=== PATIENT | male | born 1955 | race Caucasian/White ===

== ENCOUNTER 2018-12-15 12:57 | Outpatient (CLI) | payer OTHER, SELFPAY ==
--- NOTE | 2018-12-15 15:00 | DI.RAD_ITS ---
EXAM: XR FINGER RT INDEX INDICATION: Unexplained bruising under fingernail S69.90XA INJURY FINGER. COMPARISON: No exams were available for comparison TECHNIQUE: 2D digital imaging was performed. FINDINGS: No fracture or dislocation is seen. Degenerative changes are seen at the interphalangeal joints. IMPRESSION: No acute abnormality.
== END 2018-12-15 13:17 ==
PROVIDERS: PCP Family Medicine; Visit Provider Family Medicine
DX: S69.91XA Unspecified injury of right wrist, hand and finger(s), initial encounter (principal); M79.644 Pain in right finger(s); M19.041 Primary osteoarthritis, right hand
CPT/HCPCS: 73140

== ENCOUNTER 2020-05-25 09:10 | Outpatient (CLI) | payer OTHER, SELFPAY ==
--- NOTE | 2020-05-25 15:45 | DI.RAD_ITS ---
EXAM: XR RIBS RT W PA LAT CHEST CLINICAL HISTORY: Right flank pain, ? rib or lung involvement, R10.9 TECHNIQUE: 2D digital imaging was performed. COMPARISON: CR,RF BARIUM SWALLOW ONLY from 05/01/2017 FINDINGS: No obvious right rib fractures evident. No lung contusion or pneumothorax. There is no pleural effusion evident. Heart size is normal and there is no significant mediastinal widening. IMPRESSION: 1. No right rib fractures evident. 2. No ipsilateral lung nor pleural abnormality evident. No pneumothorax. DATA REPOSITORY: RADIATION DOSE DELIVERED:
== END 2020-05-25 09:30 ==
PROVIDERS: PCP Family Medicine; Visit Provider Nurse Practitioner
DX: R10.31 Right lower quadrant pain (principal)
CPT/HCPCS: 71046; 71100

== ENCOUNTER 2020-05-25 19:02 | Outpatient (REF) | payer OTHER, SELFPAY | END 2020-05-25 19:03 | disposition home or self-care (01) | LOC: LBN 19:02 | PROVIDERS: PCP Family Medicine; Visit Provider Nurse Practitioner | DX: R10.31 Right lower quadrant pain (principal) | CPT/HCPCS: 87086 ==

== ENCOUNTER 2020-09-17 14:32 | Outpatient (REF) | payer OTHER, SELFPAY ==
[2020-09-19 00:04] LABS: COVID-19 RT-PCR UVMMC Result Negative (Negative)
== END 2020-09-17 14:33 | disposition home or self-care (01) ==
LOC: LBN 14:32
PROVIDERS: PCP Family Medicine; Visit Provider Nurse Practitioner Family
DX: Z20.822 Contact with and (suspected) exposure to COVID-19 (principal); J02.9 Acute pharyngitis, unspecified
CPT/HCPCS: U0003

== ENCOUNTER 2021-01-02 02:10 | Outpatient (CLI) | payer OTHER, SELFPAY ==
[2021-01-02 11:34] LABS: ALT 25 U/L (16-63); AST 15 U/L (15-37); Albumin 3.8 g/dL (3.4-5.0); Alkaline Phosphatase 84 U/L (46-116); Anion Gap 6.6 mmol/L (3-11); BUN 17 mg/dL (7-18); Bilirubin, Total 0.5 mg/dL (0.2-1.0); CO2 31.4 mmol/L (21.0-32.0); Calcium 8.9 mg/dL (8.5-10.1); Calculated LDL 166 mg/dL (<100); Chloride 105 mmol/L (98-107); Cholesterol 235 mg/dL (<200); Glucose 97 mg/dL (74-106); HDL Cholesterol 55 mg/dL (40-60); Sodium 143 mmol/L (136-145); Total Protein 6.8 g/dL (6.4-8.2); Triglyceride 74 mg/dL (<150)
[2021-01-03 10:19] LABS: HIV-1/2 Ag & Ab Screen Negative (Negative)
== END 2021-01-02 02:11 | disposition home or self-care (01) ==
LOC: LOS 02:10
PROVIDERS: PCP Family Medicine; Visit Provider Family Medicine
DX: E78.5 Hyperlipidemia, unspecified (principal); Z11.4 Encounter for screening for human immunodeficiency virus [HIV]
CPT/HCPCS: 36415; 80053; 80061; 87389

== ENCOUNTER 2021-09-22 01:33 | Outpatient (CLI) | payer BC, SELFPAY ==
[2021-09-22 08:01] LABS: Abs Immature Grans 0.02 10^3/uL (0.0-0.06); Absolute Basophil Count 0.05 10^3/uL (0.0-0.2); Absolute Lymphocyte Count 1.02 10^3/uL (1.2-3.4); Absolute Monocyte Count 0.82 10^3/uL (0.1-0.8); Basophils % 0.7; HCT 42.9 % (40.0-50.0); HGB 13.7 g/dL (13.5-17.5); Immature Grans % 0.3; MCH 29.3 pg (27.0-33.0); MCHC 31.9 % (32.0-36.0); MCV 92 fL (80-95); MPV 9.5 fL (8.0-11.0); Platelet Count 230 10^3/uL (130-400); RBC 4.67 10^6/uL (4.36-5.78); RDW 13.2 % (11.8-14.1); RDW-SD 45.1 fL; WBC 6.81 10^3/uL (4.4-10.8)
[2021-09-22 08:11] LABS: ALT 23 U/L (16-63); AST 16 U/L (15-37); Albumin 3.8 g/dL (3.4-5.0); Alkaline Phosphatase 74 U/L (46-116); Anion Gap 6.9 mmol/L (3-11); BUN 18 mg/dL (7-18); Bilirubin, Total 0.6 mg/dL (0.2-1.0); CO2 28.1 mmol/L (21.0-32.0); Calcium 8.8 mg/dL (8.5-10.1); Chloride 104 mmol/L (98-107); Glucose 130 mg/dL (74-106); Sodium 139 mmol/L (136-145)
== END 2021-09-22 01:34 | disposition home or self-care (01) ==
LOC: LBO 01:34
PROVIDERS: PCP Nurse Practitioner Adult Health; Visit Provider Surgery
DX: E78.5 Hyperlipidemia, unspecified (principal); K21.00 Gastro-esophageal reflux disease with esophagitis, without bleeding; K43.9 Ventral hernia without obstruction or gangrene; N40.0 Benign prostatic hyperplasia without lower urinary tract symptoms; R39.9 Unspecified symptoms and signs involving the genitourinary system
CPT/HCPCS: 36415; 80053; 85025

== ENCOUNTER 2021-10-31 06:07 | Day surgery (SDC) | payer BC, SELFPAY ==
--- NOTE | 2021-10-30 10:58 | W.PM.OP ---
Date of service: 10/31/21 Time of Service: 09:21 Operative Note Operative Note DATE OF PROCEDURE: 10/31/21 PRE-OP DIAGNOSIS: abdominal wall hernia x2- incisional in LUQ and umbilical POST-OP DIAGNOSIS: same (laprascopic ventral hernia repair) PROCEDURE: laprascopic ventral hernia repair SURGEON: Tammie Corado SOFTWARE ENGINEER DEVELOPER: Tammie Robins ANESTHESIA TYPE: Local By Surgeon, General LMA/ETT and Primary Nerve Block Refer to Anesthesia Record ESTIMATED BLOOD LOSS: 5 PATHOLOGY: none sent COMPLICATIONS: None Patient was transported to: same day Patient's condition: stable Procedure Description: Patient is here today for ventral hernia repair. He has an umbilical hernia and a port site hernia in the left upper quadrant from a previous esophageal hernia repair. He has been noting increased pain in the left upper quadrant port site hernia. Both hernias are marked in preop and reviewed procedures, risks, and expectations at home for care. He needs to be off 2 weeks from work and then he will follow-up with me in the office we will decide when he can return to work. Patient is brought to the operative room suite. He is placed in the supine position. Anesthesia is administered per the department of anesthesia. Alfonso catheter is placed. Arms are tucked. He did receive preop antibiotics. He is prepped and draped in the usual sterile fashion using a ChloraPrep scrub solution. Timeout is performed. 30 cc of quarter percent Marcaine is used create local field blocks. A stab incision is done through the umbilical hernia. The varies needle is inserted. Drop test is positive and insufflation is begun. With 15 mmHg is noted on the monitor, the Veress is removed and a 5mm port is inserted in the right lower quadrant. The scope was then inserted through the port which show There is no damage to underlying structures. The umbilical hernia and hernia in the right upper quadrant are noted. The umbilical hernia is 2x1 cm. The hernia in LUQ is 1x1cm. There are no adhesions or large hernia sacks. He is also been having some pain in the right upper quadrant. This is an area of scar tissue from where a port site have been placed previously but there is no hernia. A second 5mm blunt port is then placed in the laterally left lower quadrant under direct visualization following creation of local field block, as well as a subcostal 10 mm port on the right. The falciform ligament and fatty attachments are then taken down, to facilitate mesh placement, using a LigaSure device; placed in a bag and brought out. The fascial edges are not closed prior to the mesh fixation. Proper sizing of the mesh is ensured. The mesh is not placed against the abdominal wall. A [employer] 2D imaging system mesh 6.5 inch hernia mesh is used-please see RN notes for lot number. The mesh is rolled and introduced into the abdominal cavity through the 10mm port. It is positioned between the two hernias. The insulflation tubing is brought through the abdominal wall using a endoclose device. The positioning balloon is inflated and the mesh is secured to the anterior abdominal wall and placed in proper orientation. The mesh is held into position w/ a hemostat. It is fixed into place using AbsorbaTacks, placed every 1 cm around the edges and than internally. There is at least 5cm overlap of the mesh over the hernia defects. Satisfied with the repair of the area, a diagnostic laparoscopy was performed. There was no abnormal fluid collection or any active bleeding noted. The pressure in the abdomen is decreased. The mesh is noted to lay flat with no buckling. Endo Close device is used to close the fascia over the 10 mm port site. The 5 mm ports are removed under direct visualization. There is no bleeding. All ports and instruments are removed. Pneumoperitoneum is evacuated. Sponge and needle and instrument counts are correct. The port sites are closed with 4-0 Monocryl running subcuticular fashion and skin affix. The patient tolerated the procedure well without complication and transferred to the recovery room in stable condition.
[2021-10-31] VITALS (13 sets, daily range): BP systolic 89–115; BP diastolic 43–73; PULSE 52–57; RESP 15–19; TEMP 36.2–36.6; O2SAT 93–98; BMI 30.2
[2021-10-31] MEDS: Gabapentin 300 MG CAP 600 MG PO (06:46)
[2021-10-31] MEDS: Acetaminophen 500 MG TAB 1000 MG PO (06:46)
--- NOTE | 2021-10-31 06:53 | W.ANESPRE ---
General Info Date of Service Date Performed: 10/31/21 Height: 5 ft 10 in Weight: 95.7 kg Body Mass Index (BMI): 30.2 Surgical Procedure: Operation Date: 10/31/21 07:40 Proposed Procedure Side Surgeon p Hernia Abdominal Wall Laparoscopic X2 Tammie Corado, Meds Allergies and Home Medications Allergies Allergy/AdvReac Type Severity Reaction Status Date / Time atorvastatin Allergy Intermediate RASH Verified 10/31/21 06:28 bupropion AdvReac Intermediate PASSED Verified 10/31/21 06:28 OUT tamsulosin AdvReac throat Verified 10/31/21 06:28 burning, chest pressure, stomach discomfort Home Medication Medication Instructions Recorded ibuprofen 200 mg capsule (Advil 400 mg PO Q4H PRN 11/15/14 Liqui-Gel) clotrimazole 1 % topical cream 1 applic transdermal BID 30 days 11/17/19 #45 grams hydrocortisone acetate 1 % topical 1 applic topical Q8H PRN 30 days 11/17/19 ointment #1 tube alfuzosin 10 mg tablet,extended 10 mg PO DAILY 02/27/21 release 24 hr Current Visit Medications: Current Medications Generic Name Dose Route Start Last Admin Trade Name Freq PRN Reason Stop Dose Admin Acetaminophen 1,000 mg 10/31/21 06:00 10/31/21 06:46 Acetaminophen 500 Mg Tab PO 10/31/21 16:00 1,000 mg PREOP GAIL Administration Gabapentin 600 mg 10/31/21 06:00 10/31/21 06:46 Gabapentin 300 Mg Cap PO 10/31/21 16:00 600 mg PREOP GAIL Administration Ondansetron HCl 4 mg/ Sodium 52 mls @ 200 mls/hr 10/30/21 10:57 Chloride IVPB Q6H PRN PRN Ringer's Solution 1,000 mls @ 80 mls/hr 10/31/21 06:00 IV 11/29/21 23:59 INFUSION GAIL Cefazolin Sodium/Dextrose 2 gm in 50 mls @ 100 mls/hr 10/31/21 06:00 Ancef Duplex IVPB 10/31/21 16:00 PREOP GAIL IV Miscellaneous Supplies 1 each 10/31/21 06:00 Iv Access IV 11/29/21 23:59 DIRECTED GAIL Morphine Sulfate 2 mg 10/30/21 10:57 Morphine 4 Mg/Ml Syr IVP Q1H PRN PRN Sodium Chloride 0 ml 10/31/21 06:00 Normal Saline Flush 10 Ml Syr IV 11/29/21 23:59 PRN PRN Sodium Chloride 0 ml 10/31/21 06:00 Normal Saline 10 Ml Vial IJ 11/29/21 23:59 DIRECTED PRN Sterile Water 0 ml 10/31/21 06:00 Water,Injection,Sterile 10 Ml Vial IJ 11/29/21 23:59 DIRECTED PRN PFSH Active Problems Active Problems: Problem Status Onset Code Paraesophageal hernia 06/14/17 K44.9 Reflux esophagitis 03/04/17 K21.0 Right flank pain R10.9 Left upper quadrant abdominal pain R10.12 Abdominal wall hernia K43.9 Medical History Medical History Abnormal auditory perception (12/28/13) Benign prostate hyperplasia Decreased libido (~02/27/20) Feeling of incomplete bladder emptying (02/27/20) History of rheumatic fever (02/16/11) Pt. states when he was 4 or 5 years. Pt. states he has had no issues with his heart, he said years and years ago he was told he had a heart murmur but nothing has ever been said in years per pt. 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) Increased urinary frequency (11/25/15) Lower urinary tract symptoms (LUTS) (05/01/16) Meralgia paresthetica of right side (05/01/16) Osteoarthritis of left hip 01/22/18 [facility] Overweight (BMI 25.0-29.9) (11/15/14) usual 205-215 Right leg paresthesias (11/09/13) R lateral thigh; onset Sensorineural hearing loss, bilateral (01/10/15) Tinnitus of both ears (11/09/13) URI (upper respiratory infection) Vitreous detachment of right eye (11/15/14) decr lateral field R eye, Dr Gary Glover [place] Medical History Comments:: [place] [facility] [place] reports needing straight cath postop; he's worried about that Surgical History Surgical History Paraesophageal Hernia repair (07/29/17) [place] [facility] [place]aroscopically w/Intraoperative Upper Endo UGI w/ Bx (02/28/17) UGI w/ bx to break ring (no histology) (04/11/17) Vasectomy vasectomy , reversal 01/1993 Tobacco Smoking/Tobacco Use Status: Former Tobacco Use Smokeless tobacco user: snuff Passive smoking exposure: No Second hand exposure: No Alcohol Alcohol Intake: current Alcohol intake frequency: 0-2 drinks per day Alcohol type: beer Substance Use Substance use: Never Substance use type: does not use Vital Signs and Lab Results Vital Signs Most Recent Vital Signs in EMR: Most Recent Vital Signs Temp Pulse Resp BP Pulse Ox 36.6 C 57 L 15 115/73 98 10/31/21 06:32 10/31/21 06:32 10/31/21 06:32 10/31/21 06:32 10/31/21 06:32 Lab Results Blood Type / Crossmatch: No Data to Display Complete Blood Count: No Data to Display Complete Metabolic Panel: No Data to Display Liver Function Panel: No Data to Display Coagulation Panel: No Data to Display Cardiac Panel: No Data to Display Arterial Blood Gas: No Data to Display Venous Blood Gas: No Data to Display Pancreas Panel: No Data to Display Thyroid Panel: No Data to Display Infectious Disease: No Data to Display Blood Cultures: No Data to Display Toxicology Panel: No Data to Display Anesthesia Assessment and Plan Anesthesia History Personal History: No History of Anesthesia Complications Family History: No Family History of Anesthesia Complications Exercise Tolerance Exercise Tolerance: Metabolic Equivalents>4 Pertinent Negatives Pertinent Negatives: No Symptoms of GERD, No Major Cardiovascular Symptoms or Complaints and No Major Pulmonary Symptoms or Complaints Cardiac & Pulmonary Exam Cardiac Exam: Normal S1/S2 Heart Sounds Pulmonary Exam: Clear Bilateral Breath Sounds Implantable Cardiac Device Does patient have a Pacemaker or an ICD?: No Airway Exam Known Difficult Airway: No Mallampati Class: 1 Mouth Opening: Normal (> 3cm) Thyromental Distance: Greater than 3 cm Neck Range of Motion: Full ROM Neck Circumference: Normal Teeth Condition: Normal Dentition ASA Classification ASA Score: ASA 2 Emergency Case?: No NPO Status NPO Status: NPO Clears >2 hours, Solids >8 hours Anesthesia Plan Resuscitation Status: Full Code Anesthesia Technique: General Anesthesia Airway Planned: Endotracheal Tube Monitors Used: Standard Monitors
[2021-10-31] MEDS: Lactated Ringers 1,000 ML 80 ML IV (07:20)
--- NOTE | 2021-10-31 07:31 | W.PM.HP.N ---
Date of service: 10/31/21 Time of Service: 07:31 Assessment and Plan Assessment and plan (1) Paraesophageal hernia: Status: Acute (2) Left upper quadrant abdominal pain: Status: Acute (3) Abdominal wall hernia: Status: Acute (4) Benign prostate hyperplasia: (5) History of rheumatic fever: (6) Hyperlipidemia: History of Present Illness Narrative: PT is here today for incionsla hernia repair x2 He has been having increasing pain in the left upper quadrant incision. He also notes a questionable bulge in the right upper quadrant. He has had no nausea and vomiting. Reviewed what he could expect during the procedure postprocedure recovery time and risks. We discussed that he may need to spend the night in the hospital because muscle spasm from tach placement. Risks include but are not limited to: Bleeding, infection, pneumonia, blood clots, chronic pain or numbness, reaction from the mesh, recurrences complications from anesthesia, and other on physical complications. Patient understands this has not been done for cosmesis. All questions answered and he is stable for procedure. The hernia sites are marked. This document was created using voice activated software and may contain errors Review of Systems All systems reviewed & are unremarkable except as noted in HPI and below PFSH All Active Problems Paraesophageal hernia (Acute 06/14/17) Raman Srinivasan MD [facility] [place] Reflux esophagitis (Acute 03/04/17) 03/01/[address] [facility] [place] endoscopy RH Right flank pain (Acute) Left upper quadrant abdominal pain (Acute) Abdominal wall hernia (Acute) Medical History Abnormal auditory perception (12/28/13) Benign prostate hyperplasia Decreased libido (~02/27/20) Feeling of incomplete bladder emptying (02/27/20) History of rheumatic fever (02/16/11) Pt. states when he was [age] years. Pt. states he has had no issues with his heart, he said years and years ago he was told he had a heart murmur but nothing has ever been said in years per pt. 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) Increased urinary frequency (11/25/15) Lower urinary tract symptoms (LUTS) (05/01/16) Meralgia paresthetica of right side (05/01/16) Osteoarthritis of left hip 01/22/18 [facility] Overweight (BMI 25.0-29.9) (11/15/14) usual 205-215 Right leg paresthesias (11/09/13) R lateral thigh; onset Sensorineural hearing loss, bilateral (01/10/15) Tinnitus of both ears (11/09/13) URI (upper respiratory infection) Vitreous detachment of right eye (11/15/14) decr lateral field R eye, Dr Gary Glover, [place] Surgical History Paraesophageal Hernia repair (07/29/17) Done at [facility] [place] Laparoscopically w/Intraoperative Upper Endo UGI w/ Bx (02/28/17) UGI w/ bx to break ring (no histology) (04/11/17) Vasectomy vasectomy , reversal 01/1993 Family History Mother , Breast Cancer at age 86. Neoplasm Father , cardiac issues at age 70. Heart disease Brother Age: 74 No problems noted. Social History Smoking/Tobacco Use Status: Former Tobacco Use Quit Date: 02/11/99 Tobacco: How many years used: 25 Smokeless tobacco user: snuff Quit status: quit date established (2004) Second Hand Exposure: No Smoking risk assessment performed?: Yes Alcohol Intake: current Alcohol Intake frequency: 0-2 drinks per day Alcohol type: beer Drug use: Never Substance use type: does not use Adopted: No Caregiver/Support person: No Foster care: No Household members: spouse Housing: house Number of Children: 3 number of grandchildren: 1 Communication Needs: Hard of Hearing and Corrective Lenses Education Level: high school Do you need help understanding health information?: Rarely 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 Pets and animals: Yes Pets and animals: cat(s) and dog(s) Sexually active: No Do you think of yourself as: straight/heterosexual Current gender identity: male What is your relationship status?: How often do you talk on the phone with friends or family?: once per week How often do you attend mosque or mormonism services?: decline to answer Do you belong to any clubs or organized social groups?: yes Panel score (0-1 are the most socially isolated patients): 2 What type of physical activity do you participate in: walking Duration: 15-30 minutes/day Frequency: 3-4 times per week Geraldine/Christian: None Special geraldine needs: No Seatbelt use: always Helmet use: Yes Helmet use: sometimes Drive intox or ride w/intox 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 Do you feel safe in your relationship?: Yes Meds Allergies and Home Medications Allergies Allergy/AdvReac Type Severity Reaction Status Date / Time atorvastatin Allergy Intermediate RASH Verified 10/31/21 06:28 bupropion AdvReac Intermediate PASSED Verified 10/31/21 06:28 OUT tamsulosin AdvReac throat Verified 10/31/21 06:28 burning, chest pressure, stomach discomfort Home Medications Medication Instructions Recorded Confirmed Type ibuprofen 200 mg capsule (Advil 400 mg PO Q4H PRN 11/15/14 10/31/21 History Liqui-Gel) clotrimazole 1 % topical cream 1 applic transdermal BID 30 days 11/17/19 10/31/21 Rx #45 grams hydrocortisone acetate 1 % topical 1 applic topical Q8H PRN 30 days 11/17/19 10/31/21 Rx ointment #1 tube alfuzosin 10 mg tablet,extended 10 mg PO DAILY 02/27/21 10/31/21 History release 24 hr Exam Resp Effort & Inspection: normal respiratory effort and able to speak in complete sentences Auscultation: clear to auscultation bilaterally Cardio Rate: regular rate Rhythm: regular rhythm GI Inspection: visible herniation (sites marked. pt now having pain in ruq as well. will visulaize ) Palpation: soft Auscultation: normal bowel sounds Extrem General: no clubbing, cyanosis or edema Results Last Vital Signs Temp 36.6 C 10/31/21 06:32 Pulse 57 L 10/31/21 06:32 Resp 15 10/31/21 06:32 BP 115/73 10/31/21 06:32 Pulse Ox 98 10/31/21 06:32
[2021-10-31] MEDS: ceFAZolin 2 GM/50 ML BAG IVPB (07:42)
[2021-10-31] MEDS: Bupivacaine 0.5% Pres-Free W/EPI 30 ML VIAL (08:44)
--- NOTE | 2021-10-31 09:22 | W.PM.DSUDISC ---
Discharge Plan Disposition Patient Disposition: HOME Condition: Good Discharge Details Reason For Visit: ventral hernia repair Attending Provider: Tammie Corado Primary Care Provider: Kinjal Krishna Home Meds and New Rx's Prescriptions: New tramadol [Ultram] 50 mg tablet 50 mg PO Q6H PRNQty: 14 0RF cyclobenzaprine 5 mg tablet 5 mg PO TID PRNQty: 20 0RF Continued ibuprofen [Advil Liqui-Gel] 200 MG capsule 400 mg PO Q4H PRN Rx Instructions: uses PRN L shoulder pain clotrimazole 1 % cream 1 applic Transdermal BID 30 Days Qty: 45 2RF Rx Instructions: Apply to leg, groin and flank hydrocortisone acetate 1 % ointment 1 applic Topical Q8H PRN 30 Days Qty: 1 3RF Rx Instructions: Apply to leg, groin, flank and back, as needed, for itch alfuzosin 10 mg tablet extended release 24 hr 10 mg PO DAILY Rx Instructions: administer after the same meal each day, note dated 02/26/2021 [facility] Discharge Instructions Additional Instructions: Dr. Corado HERNIA REPAIR ? POSTOPERATIVE INSTRUCTIONS Patients who have this type of surgery can usually be expected to return to work within two weeks and have minimal amounts of discomfort. ? ACTIVITY: The day of surgery should be spent resting. However, you can be up for short periods of time, I.E., going to the bathroom or kitchen. Avoid lifting or straining. On the day following surgery, you can be up and about as desired. ? LIFTING: Restrict your lifting to no more than five (5) pounds for the first week following surgery. For the second week after surgery, don?t lift more than ten pounds.? We will decide when you are done with restrictions and when you can return to work, at your follow-up appointment.? No sexual activity for two weeks.? ? DIET: There are no dietary restrictions following surgery. However, you may want to start with small amounts of liquids to avoid nausea the day of surgery. ? INCISION CARE: You will notice purple skin glue closing the incision.? Do not peel this off- it will wear off on its own.? After 24 hours you may shower. The dressing may be replaced for comfort, but is not necessary. ?An ice bag may be applied to the incision for 72 hours following surgery. ? SIGNS OF INFECTION: It is not unusual to have some black and blue discoloration of the skin around the incision. ?It will slowly disappear. If you have any increased redness, drainage, fever (above 100 degrees), please contact your doctor for an examination. ? DISCOMFORT: You may expect to have some mild discomfort at the incision sight. If severe pain develops you should contact your doctor for further instructions. ? URINATION: Patients who have surgery occasionally have problems urinating. If you experience problems and are not able to urinate within 6 hours following your surgery, please call your doctor immediately or go to your nearest Emergency Room for evaluation. ? DRIVING: NO driving for three (3) days after surgery, or if you are still taking narcotic pain medication.? ? MEDICATIONS: Alternate Tylenol 1000mg by mouth every 8 hours and Ibuprofen 600mg every 6 hours. ?Make sure you take ibuprofen with food and not on an empty stomach. ?Take the Tylenol and ibuprofen continuously for the first 72hrs- not just when you have pain.? Use the tramadol (narcotic pain medication) OR flexeril (muscle relaxer) for breakthrough pain. Do not take the tramadol and flexeril at the same time. Take at least 1 hour aprt.? Use ICE!?? Twenty minutes on, and then off, continuously for the first 72hours. If you are taking narcotic pain medication, follow the instructions on the label and do not drive. Pain medications can make you very constipated. Make sure you are moving your bowels daily. If not, take Miralax, milk of magnesia or magnesium citrate.?? Anesthesia makes you very constipated.? Take a dose of milk of magnesia the morning after surgery. ? REPORT: Unusual swelling, severe pain, unresolved nausea, signs of infection, or difficulty in urination to your surgeon. Follow up in clinic with Dr. Corado in 2 weeks.? [phone] Activity:: see above Remove Dressings/Wound Care:: 24 hours Shower/Bathe:: 24 hours Diet:: As Tolerated Discharge Orders Discharge Orders: Discharge Order (Routine); Ordered 10/30/21 Ordered By: Tammie Corado DS: Diagnosis Discharge Diagnosis (1) Paraesophageal hernia: Status: Acute (2) Left upper quadrant abdominal pain: Status: Acute (3) Abdominal wall hernia: Status: Acute (4) Benign prostate hyperplasia: (5) History of rheumatic fever: (6) Hyperlipidemia:
[2021-10-31] MEDS: ePHEDrine 25 MG/5 ML Syringe IVP ×2 (10:24→10:39)
[2021-10-31] MEDS: HYDROmorphone 2 MG/ML SYR IVP (10:30)
[2021-10-31] MEDS: Normal Saline 10 ML VIAL IJ (10:30)
--- NOTE | 2021-10-31 11:24 | W.ANESPOSTOP ---
Postoperative Evaluation Date, Time and Location Date Performed: 10/31/21 Time Performed: 11:24 Patient Location: Day Surgery Unit Vital Signs Most Recent Imported Vital Signs: Most Recent Vital Signs Temp Pulse Resp BP Pulse Ox 36.3 C L 57 L 16 107/59 L 94 10/31/21 10:50 10/31/21 10:50 10/31/21 10:50 10/31/21 10:50 10/31/21 10:50 Pain Score Most Recent Pain Score: Most Recent Pain Score Pain Level 5 10/31/21 10:50 Assessment Mental Status: Awake (Alert & Oriented to Patient Baseline) Airway and Respiratory Function: Patent airway with normal (patient baseline) respiratory exam Cardiovascular Function: Hemodynamically Stable Hydration Status: Adequately Hydrated Nausea & Vomiting: No Nausea or Vomiting Pain: Pain is tolerable per patient (06/20, will receive PO Tramadol. Pt. agrees with plan.) Peripheral Nerve Block: Patient did not receive a nerve block
[2021-10-31] MEDS: traMADol 50 MG TAB PO (11:38)
[2021-10-31] MEDS: Cyclobenzaprine 10 MG TAB PO (13:14)
== END 2021-10-31 15:09 | disposition home or self-care (01) ==
PROVIDERS: PCP Nurse Practitioner Adult Health; Visit Provider Surgery
PROC: 0WQF4ZZ Repair Abdominal Wall, Percutaneous Endoscopic Approach (ICD-10-PCS; CPT 49654; principal; 2021-10-31 07:30)
DX: K43.2 Incisional hernia without obstruction or gangrene (principal); K42.9 Umbilical hernia without obstruction or gangrene
CPT/HCPCS: 49654; 49652; C1781; J0690; J1100; J1170; J1885; J2405; J2704

== ENCOUNTER 2021-11-01 07:42 | Emergency (ER) | payer BC, SELFPAY ==
[2021-11-01 07:46] VITALS: BP 142/80; PULSE 82; RESP 16; TEMP 36.8; O2SAT 96
[2021-11-01 08:04] LABS: Bilirubin Negative (Negative); Blood Large (Negative); Clarity Clear (Clear); Glucose Negative (Negative); Ketones Negative (Negative); Leukocyte Esterase Negative (Negative); Nitrite Negative (Negative); Urobilinogen 0.2 EU/dL (Up TO 0.2)
--- NOTE | 2021-11-01 08:05 | W.ED.GENAD ---
Discharge Plan Disposition Patient Disposition: HOME Condition: Stable Discharge Details Clinical Impression: Acute urinary retention Primary Care Provider: Kinjal Krishna ED Provider: José Madden Home Meds and New Rx's Prescriptions: Continued ibuprofen [Advil Liqui-Gel] 200 MG capsule 400 mg PO Q4H PRN Rx Instructions: uses PRN L shoulder pain clotrimazole 1 % cream 1 applic Transdermal BID 30 Days Qty: 45 2RF Rx Instructions: Apply to leg, groin and flank hydrocortisone acetate 1 % ointment 1 applic Topical Q8H PRN 30 Days Qty: 1 3RF Rx Instructions: Apply to leg, groin, flank and back, as needed, for itch tramadol [Ultram] 50 mg tablet 50 mg PO Q6H PRNQty: 14 0RF cyclobenzaprine 5 mg tablet 5 mg PO TID PRNQty: 20 0RF Discontinued alfuzosin 10 mg tablet extended release 24 hr 10 mg PO DAILY Rx Instructions: administer after the same meal each day, note dated 02/26/2021 cgc Discharge Instructions Instructions: Urinary Retention in Men (ED), Alfonso Catheter Placement and Care (ED) Additional Instructions: Please keep Alfonso catheter intact. Follow-up with general surgery later this week for reassessment. Return to the emergency department immediately for any worsening or new concerning symptoms. Referrals: Kinjal Krishna, EZEKIEL [Primary Care Provider] - aTmmie Corado DO [OSTEOPATHIC DOCTOR] - Medical Decision Making 65-year-old male with history of BPH here with urinary discomfort and suprapubic pain 1 day status post umbilical hernia surgery that was performed under general anesthesia with urinary catheter. Patient was able to produce only a small amount of urine and bladder scan was performed showing greater than 600 mL of urine retained. Urinalysis was reviewed and reveals 20-50 RBCs, 0-2 WBCs. Presentation is consistent with acute urinary retention likely secondary to instrumentation and anesthesia. Plan to place Alfonso catheter. Patient has been on alpha 1-osmar in the past and discontinued use secondary to abnormal rash. I will not restart alpha 1 osmar at this time given side effect. I called and spoke with on-call surgeon, Dr. Lees, discussed ED presentation course, he agrees with treatment and will schedule outpatient follow-up for reassessment on Saturday. HPI General Mode of arrival: ambulatory. Date/Time Provider Initiated Documentation: 11/01/21 07:57. Limitations to Documentation: no limitations. Information obtained by: patient and family. HPI Narrative: 55-year-old male with history of BPH here 1 day status post umbilical hernia surgery with chief complaint of urinary discomfort. Patient notes feeling like he has to urinate and is having trouble initiating stream. He had a small amount of hematuria last night. Also notes dysuria. Symptoms are severe. Constant. No modifiers. Patient denies associated fever. No testicular pain or swelling. Of note, patient was catheterized for umbilical hernia surgery that was performed with general anesthesia. Related Data Home Medications Medication Instructions Recorded Confirmed ibuprofen 200 mg capsule (Advil 400 mg PO Q4H PRN 11/15/14 11/01/21 Liqui-Gel) clotrimazole 1 % topical cream 1 applic transdermal BID 30 days 11/17/19 11/01/21 #45 grams hydrocortisone acetate 1 % topical 1 applic topical Q8H PRN 30 days 11/17/19 11/01/21 ointment #1 tube cyclobenzaprine 5 mg tablet 5 mg PO TID PRN #20 tabs 10/31/21 11/01/21 tramadol 50 mg tablet (Ultram) 50 mg PO Q6H PRN #14 tabs 10/31/21 11/01/21 Previous Rx's Medication Instructions Recorded clotrimazole 1 % topical cream 1 applic transdermal BID 30 days 11/17/19 #45 grams hydrocortisone acetate 1 % topical 1 applic topical Q8H PRN 30 days 11/17/19 ointment #1 tube cyclobenzaprine 5 mg tablet 5 mg PO TID PRN #20 tabs 10/31/21 tramadol 50 mg tablet (Ultram) 50 mg PO Q6H PRN #14 tabs 10/31/21 Allergies Allergy/AdvReac Type Severity Reaction Status Date / Time atorvastatin Allergy Intermediate RASH Verified 11/01/21 07:51 bupropion AdvReac Intermediate PASSED Verified 11/01/21 07:51 OUT tamsulosin AdvReac throat Verified 11/01/21 07:51 burning, chest pressure, stomach discomfort General Stated Complaint: Urinary OBEY: 3 Review of Systems All systems reviewed & are unremarkable except as noted in HPI and below Constitutional Constitutional: Denies fever(s) Gastrointestinal Gastrointestinal: Reports abdominal pain (Suprapubic fullness) PFSH All Active Problems (Updated 11/01/21 @ 08:30 by José Madden MD) Acute urinary retention (Acute) Paraesophageal hernia (Acute 06/14/17) Raman Srinivasan MD [facility] Reflux esophagitis (Acute 03/04/17) 03/01/17 Dr. Payne [facility] endoscopy RH Right flank pain (Acute) Left upper quadrant abdominal pain (Acute) Abdominal wall hernia (Acute) Medical History Abnormal auditory perception (12/28/13) Benign prostate hyperplasia Decreased libido (~02/27/20) Feeling of incomplete bladder emptying (02/27/20) History of rheumatic fever (02/16/11) Pt. states when he was 4 or 5 years. Pt. states he has had no issues with his heart, he said years and years ago he was told he had a heart murmur but nothing has ever been said in years per pt. 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) Increased urinary frequency (11/25/15) Lower urinary tract symptoms (LUTS) (05/01/16) Meralgia paresthetica of right side (05/01/16) Osteoarthritis of left hip 01/22/18 [facility] Overweight (BMI 25.0-29.9) (11/15/14) usual 205-215 Right leg paresthesias (11/09/13) R lateral thigh; onset Sensorineural hearing loss, bilateral (01/10/15) Tinnitus of both ears (11/09/13) URI (upper respiratory infection) Vitreous detachment of right eye (11/15/14) decr lateral field R eye, Dr Gary Glover [place] Surgical History Paraesophageal Hernia repair (07/29/17) Done at [facility] Laparoscopically w/Intraoperative Upper Endo UGI w/ Bx (02/28/17) UGI w/ bx to break ring (no histology) (04/11/17) Vasectomy vasectomy , reversal 01/1993 Family History Mother , Breast Cancer at age 86. Neoplasm Father , cardiac issues at age 70. Heart disease Brother Age: 74 No problems noted. Social History Smoking/Tobacco Use Status: Former Tobacco Use Quit Date: 02/11/99 Tobacco: How many years used: 25 Smokeless tobacco user: snuff Quit status: quit date established (2004) Second Hand Exposure: No Smoking risk assessment performed?: Yes Alcohol Intake: current Alcohol Intake frequency: 0-2 drinks per day Alcohol type: beer Drug use: Never Substance use type: does not use Adopted: No Caregiver/Support person: No Foster care: No Household members: spouse Housing: house Number of Children: 3 number of grandchildren: 1 Communication Needs: Hard of Hearing and Corrective Lenses Education Level: high school Do you need help understanding health information?: Rarely 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 Pets and animals: Yes Pets and animals: cat(s) and dog(s) Sexually active: No Do you think of yourself as: straight/heterosexual Current gender identity: male What is your relationship status?: How often do you talk on the phone with friends or family?: once per week How often do you attend jehovah's witness or cheondoism services?: decline to answer Do you belong to any clubs or organized social groups?: yes Panel score (0-1 are the most socially isolated patients): 2 What type of physical activity do you participate in: walking Duration: 15-30 minutes/day Frequency: 3-4 times per week Geraldine/Muslim: None Special geraldine needs: No Seatbelt use: always Helmet use: Yes Helmet use: sometimes 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 Do you feel safe at home: Yes Do you feel safe in your relationship?: Yes Exam Const General: cooperative and no acute distress HENMT Mouth: moist mucous membranes Eyes Conjunctivae: normal conjunctivae Sclera: normal sclerae Resp Auscultation: clear to auscultation bilaterally, no rales, no rhonchi and no wheezes GI Palpation: soft, not firm, no guarding, no masses, not rigid and tender suprapubicly Male General Exam: Yes normal external exam Penis: normal penis Meatus: meatus normal Scrotum: scrotum normal Testes: normal Skin General skin exam: no rashes or lesions noted Neuro General: patient alert, patient awake and tone normal Extrem General: no edema Psych Appearance: grossly normal Mental Status: mental status grossly normal Course Vital Signs Vital signs: Vital Signs Temperature 36.8 C 11/01/21 07:46 Pulse 82 11/01/21 07:46 Respiratory Rate 16 11/01/21 07:46 Blood Pressure 142/80 H 11/01/21 07:46 Pulse Oximetry 96 11/01/21 07:46 Temperature 36.8 C 11/01/21 07:46 Pulse 82 11/01/21 07:46 Respiratory Rate 16 11/01/21 07:46 Respiratory Effort 11/01/21 07:53 Blood Pressure 142/80 H 11/01/21 07:46 Pulse Oximetry 96 11/01/21 07:46 Pain Level 10 11/01/21 07:53
[2021-11-01 08:10] LABS: Bacteria Negative HPF (Negative); Casts 0-2 Hyaline LPF (Negative); Crystals Negative HPF (Negative); Epithelial Cells Rare HPF (Negative); Mucus Negative (Negative); RBC 20-50 HPF (0-2); WBC 0-2 HPF (0-5)
[2021-11-01 08:11] LABS: C & S Indicated? No
== END 2021-11-01 09:22 | disposition home or self-care (01) ==
PROVIDERS: Emergency Provider Student in an Organized Health Care Education/Training Program; PCP Nurse Practitioner Adult Health
DX: R33.9 Retention of urine, unspecified (principal); Z98.890 Other specified postprocedural states
CPT/HCPCS: 51702; 99283; 81003; 81015

== ENCOUNTER 2021-11-06 22:23 | Emergency (ER) | payer BC, SELFPAY ==
[2021-11-06 22:28] VITALS: BP 142/84; PULSE 72; RESP 18; O2SAT 97
[2021-11-06] MEDS: Lidocaine 2% Jelly 6 ML SYR (22:35)
--- NOTE | 2021-11-06 23:00 | W.ED.GENAD ---
Discharge Plan Disposition Patient Disposition: HOME Condition: Good Discharge Details Chief Complaint: Urinary Clinical Impression: Urinary retention Primary Care Provider: Kinjal Krishna ED Provider: Anthony Martinez Home Meds and New Rx's Prescriptions: No Action acetaminophen [Tylenol Extra Strength] 500 mg tablet 1,000 mg PO Q6H PRN terazosin 1 mg capsule 1 mg PO QHS Qty: 30 2RF silodosin [Rapaflo] 4 mg capsule 4 mg PO DAILY Qty: 30 12RF Rx Instructions: must administer with a meal/food ibuprofen [Advil Liqui-Gel] 200 MG capsule 400 mg PO Q4H PRN Rx Instructions: uses PRN L shoulder pain clotrimazole 1 % cream 1 applic Transdermal BID 30 Days Qty: 45 2RF Rx Instructions: Apply to leg, groin and flank hydrocortisone acetate 1 % ointment 1 applic Topical Q8H PRN 30 Days Qty: 1 3RF Rx Instructions: Apply to leg, groin, flank and back, as needed, for itch tramadol [Ultram] 50 mg tablet 50 mg PO Q6H PRNQty: 14 0RF cyclobenzaprine 5 mg tablet 5 mg PO TID PRNQty: 20 0RF Discharge Instructions Instructions: Urinary Retention in Men (ED), Alfonso Catheter Placement and Care (ED) Additional Instructions: Please keep the Alfonso catheter in as directed. Please follow-up closely with Dr. Corado. If you notice any worsening of your symptoms, or any new symptoms such as vomiting, diarrhea, fever, chills, shortness of breath, chest pain, numbness, weakness, or fainting , please return immediately to the emergency department for reevaluation. Please follow up with your primary care provider as soon as possible for reassessment and reevaluation. As always, it was a pleasure participating in your medical care today. Referrals: Kinjal Krishna, PHYSICIANS ASSISTANT [Primary Care Provider] - Medical Decision Making 65-year-old male presents today for urinary retention. Call was made by Dr. Corado prior to his arrival. He has multiple alpha blockers that would prescribe him, unfortunately this pharmacies were closed and the patient was unable to get those medications. Postoperatively he had a Alfonso catheter, which was just removed today, he was able to urinate earlier today but now cannot throughout this entire evening. He was sent into the ER for Alfonso catheter replacement. Patient has no other complaints at this time. No other modifying factors. Aside for some mild amount of pressure in the suprapubic region he denies any other pain. Abdominal exam was stable. Mild urinary retention was noted. Alfonso catheter was placed with no complication. Patient tolerated procedure well. Patient will be discharged home with close follow-up with Dr. Corado. I have extensively reviewed the treatment plan and discharge instructions with the patient and their family. I have addressed all patient concerns at this time. The patient and family was made aware of what symptoms to monitor for that would warrant a return to the emergency department. Discussed the plan with the patient and family, they demonstrate verbal understanding and agreement with our assessment and plan at this time. The documentation in this chart was dictated using Swyzzle dictation software. Please excuse any dictation errors. HPI General Date/Time Provider Initiated Documentation: 11/06/21 23:00. HPI Narrative: 65-year-old male presents today for urinary retention. Call was made by Dr. Corado prior to his arrival. He has multiple alpha blockers that would prescribe him, unfortunately this pharmacies were closed and the patient was unable to get those medications. Postoperatively he had a Alfonso catheter, which was just removed today, he was able to urinate earlier today but now cannot throughout this entire evening. He was sent into the ER for Alfonso catheter replacement. Patient has no other complaints at this time. No other modifying factors. Aside for some mild amount of pressure in the suprapubic region he denies any other pain. Related Data Home Medications Medication Instructions Recorded Confirmed ibuprofen 200 mg capsule (Advil 400 mg PO Q4H PRN 11/15/14 11/01/21 Liqui-Gel) clotrimazole 1 % topical cream 1 applic transdermal BID 30 days 11/17/19 11/01/21 #45 grams hydrocortisone acetate 1 % topical 1 applic topical Q8H PRN 30 days 11/17/19 11/01/21 ointment #1 tube cyclobenzaprine 5 mg tablet 5 mg PO TID PRN #20 tabs 10/31/21 11/01/21 tramadol 50 mg tablet (Ultram) 50 mg PO Q6H PRN #14 tabs 10/31/21 11/01/21 acetaminophen 500 mg tablet 1,000 mg PO Q6H PRN 11/06/21 (Tylenol Extra Strength) silodosin 4 mg capsule (Rapaflo) 4 mg PO DAILY #30 caps 11/06/21 11/06/21 terazosin 1 mg capsule 1 mg PO QHS #30 caps 11/06/21 11/06/21 Previous Rx's Medication Instructions Recorded clotrimazole 1 % topical cream 1 applic transdermal BID 30 days 11/17/19 #45 grams hydrocortisone acetate 1 % topical 1 applic topical Q8H PRN 30 days 11/17/19 ointment #1 tube cyclobenzaprine 5 mg tablet 5 mg PO TID PRN #20 tabs 10/31/21 tramadol 50 mg tablet (Ultram) 50 mg PO Q6H PRN #14 tabs 10/31/21 silodosin 4 mg capsule (Rapaflo) 4 mg PO DAILY #30 caps 11/06/21 terazosin 1 mg capsule 1 mg PO QHS #30 caps 11/06/21 Allergies Allergy/AdvReac Type Severity Reaction Status Date / Time atorvastatin Allergy Intermediate chest pain Verified 11/06/21 09:44 alfuzosin AdvReac Intermediate Skin Rash Unverified 11/06/21 08:34 bupropion AdvReac Intermediate PASSED Verified 11/06/21 08:34 OUT tamsulosin AdvReac throat Verified 11/06/21 08:34 burning, chest pressure, stomach discomfort General Stated Complaint: Urinary OBEY: 3 Review of Systems All systems reviewed & are unremarkable except as noted in HPI and below PFSH All Active Problems Acute urinary retention (Acute) Urinary retention (Acute) Paraesophageal hernia (Acute 06/14/17) Raman Srinivasan MD [facility] [place] Reflux esophagitis (Acute 03/04/17) 03/01/17 Dr. Payne [facility] [place] endoscopy RH Right flank pain (Acute) Left upper quadrant abdominal pain (Acute) Abdominal wall hernia (Acute) Medical History Abnormal auditory perception (12/28/13) Benign prostate hyperplasia Decreased libido (~02/27/20) Feeling of incomplete bladder emptying (02/27/20) History of rheumatic fever (02/16/11) Pt. states when he was 4 or 5 years. Pt. states he has had no issues with his heart, he said years and years ago he was told he had a heart murmur but nothing has ever been said in years per pt. 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) Increased urinary frequency (11/25/15) Lower urinary tract symptoms (LUTS) (05/01/16) Meralgia paresthetica of right side (05/01/16) Osteoarthritis of left hip 01/22/18 [facility] Overweight (BMI 25.0-29.9) (11/15/14) usual 205-215 Right leg paresthesias (11/09/13) R lateral thigh; onset Sensorineural hearing loss, bilateral (01/10/15) Tinnitus of both ears (11/09/13) URI (upper respiratory infection) Vitreous detachment of right eye (11/15/14) decr lateral field R eye, Dr Gary Glover, [place] Surgical History Paraesophageal Hernia repair (07/29/17) Done at [facility] [place] Laparoscopically w/Intraoperative Upper Endo UGI w/ Bx (02/28/17) UGI w/ bx to break ring (no histology) (04/11/17) Vasectomy vasectomy , reversal 01/1993 Family History Mother , Breast Cancer at age 86. Neoplasm Father , cardiac issues at age 70. Heart disease Brother Age: 74 No problems noted. Social History Smoking/Tobacco Use Status: Former Tobacco Use Quit Date: 02/11/99 Tobacco: How many years used: 25 Smokeless tobacco user: snuff Quit status: quit date established (2004) Second Hand Exposure: No Smoking risk assessment performed?: Yes Alcohol Intake: current Alcohol Intake frequency: 0-2 drinks per day Alcohol type: beer Drug use: Never Substance use type: does not use Adopted: No Caregiver/Support person: No Foster care: No Household members: spouse Housing: house Number of Children: 3 number of grandchildren: 1 Communication Needs: Hard of Hearing and Corrective Lenses Education Level: high school Do you need help understanding health information?: Rarely 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 Pets and animals: Yes Pets and animals: cat(s) and dog(s) Sexually active: No Do you think of yourself as: straight/heterosexual Current gender identity: male What is your relationship status?: How often do you talk on the phone with friends or family?: once per week How often do you attend judaism or yazidism services?: decline to answer Do you belong to any clubs or organized social groups?: yes Panel score (0-1 are the most socially isolated patients): 2 What type of physical activity do you participate in: walking Duration: 15-30 minutes/day Frequency: 3-4 times per week Geraldine/Druze: None Special geraldine needs: No Seatbelt use: always Helmet use: Yes Helmet use: sometimes Drive 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 3.ENT: Atraumatic external nose and ears. Moist MM. Neck: Symmetric, trachea midline, No thyromegaly. 4.CVS: +S1/S2, No murmurs or gallops. Peripheral pulses 2+ and equal in all extremities. Brisk capillary refill in all extremities. 5.RESP: Unlabored respiratory effort. Clear to auscultation bilaterally. No wheezes rales or rhonchi 6.GI: Soft, Nontender/Nondistended, No hepatosplenomegaly. No guarding or rebound. Genital exam unremarkable, mild suprapubic tenderness. Alfonso catheter was placed and is in good placement with no abnormalities. No bleeding. 7.MSK: Normocephalic/Atraumatic, Extremities w/o deformity or ttp No cyanosis or clubbing, Normal movement of all extremities 8.Skin: Warm, Dry. No rashes or lesions. 9.Neuro: family caseworker II-XII grossly intact. Sensation grossly intact, no focal neurologic deficits. 10.Psych: (AAO) x3. Appropriate mood and affect Course Vital Signs Vital signs: Vital Signs Pulse 72 11/06/21 22:28 Respiratory Rate 18 11/06/21 22:28 Blood Pressure 142/84 H 11/06/21 22:28 Pulse Oximetry 97 11/06/21 22:28 Pulse 72 11/06/21 22:28 Respiratory Rate 18 11/06/21 22:28 Respiratory Effort 11/06/21 22:57 Blood Pressure 142/84 H 11/06/21 22:28 Blood Pressure Position Sitting 11/06/21 22:28 Pulse Oximetry 97 11/06/21 22:28 Oxygen Delivery Method Room Air 11/06/21 22:28 Oxygen Flow Rate 0 11/06/21 22:28 Pain Level 7 11/06/21 22:28
== END 2021-11-06 23:24 | disposition home or self-care (01) ==
PROVIDERS: Emergency Provider Student in an Organized Health Care Education/Training Program; PCP Nurse Practitioner Adult Health
DX: R33.9 Retention of urine, unspecified (principal); Z87.891 Personal history of nicotine dependence
CPT/HCPCS: 51702; 99283; 99284

== ENCOUNTER 2021-11-10 19:21 | Emergency (ER) | payer BC, SELFPAY ==
[2021-11-10 19:29] VITALS: BP 140/78; PULSE 104; RESP 18; TEMP 36.7; O2SAT 96
[2021-11-10] MEDS: Phenazopyridine 100 MG TAB PO (20:18)
[2021-11-10 20:25] LABS: Bilirubin Moderate (Negative); Blood Large (Negative); Clarity Turbid (Clear); Glucose Negative (Negative); Ketones Trace mg/dL (Negative); Leukocyte Esterase Large (Negative); Nitrite Positive (Negative); Specific Gravity >= 1.030 (1.005-1.025)
[2021-11-10 20:37] LABS: C & S Indicated? Yes; RBC >50 HPF (0-2)
[2021-11-10] MEDS: Ciprofloxacin 500 MG TAB PO (21:17)
--- NOTE | 2021-11-16 10:26 | W.ED.GENAD ---
Discharge Plan Disposition Patient Disposition: HOME Condition: Stable Discharge Details Clinical Impression: Urinary tract infection Primary Care Provider: Kinjal Krishna ED Provider: Zulema Schwab Home Meds and New Rx's Prescriptions: New ciprofloxacin HCl [Cipro] 500 mg tablet 500 mg PO Q12H Qty: 14 0RF Continued silodosin [Rapaflo] 4 mg capsule 4 mg PO DAILY Qty: 30 12RF Rx Instructions: must administer with a meal/food Discharge Instructions Instructions: Urinary Tract Infection in Men (ED) Additional Instructions: Take antibiotic as prescribed Yogurt daily while on antibiotic Increase your fluid Take Pyridium as needed for discomfort, this will cause your tears and urine to be orange in color With fever, chills, nausea, inability to urinate vomiting, return to the emergency department for reassessment Referrals: Kinjal Krishna, [employer] [Primary Care Provider] - Discharge Data Discharge Date/Time-TO BE ENTERED AT DEPARTURE: 11/10/21 21:17 Medical Decision Making Patient was only 40 cc in his bladder per bladder scan report Urine is very cloudy with small blood clots noted Urine appears quite positive for urinary tract infection, will place on ciprofloxacin given age and comorbidities Urine culture pending Patient is nontoxic in appearance Case was reviewed with Dr. Butts, patient's urologist and he feels comfortable with this plan I see no clear indication to replace patient's Alfonso catheter at this time, however he will use caution and return should he have symptoms of retention Discharged home in stable condition with stable vitals Of outpatient reassessment recommended Medical Records Medical records reviewed: Yes I reviewed the patient's medical records. Lab Data Lab results reviewed: Yes I reviewed the patient's lab results. HPI General Date/Time Provider Initiated Documentation: 11/10/21 19:45. HPI Narrative: Complex gentleman with history of recent hernia surgery with subsequent need for Alfonso catheterization presents with report of dysuria, frequency, oliguria. He reportedly saw his urologist in [place] and have his catheter removed with repeat assessment at 430 this afternoon and is urinating well. He states he this afternoon developed frequency, burning, decreased ability to urinate he is concerned he may need replacement of the Alfonso catheter. He denies any fever or chills. He denies any nausea or vomiting. He denies any weakness or dizziness. Denies any abdominal discomfort. Related Data Home Medications Medication Instructions Recorded Confirmed silodosin 4 mg capsule (Rapaflo) 4 mg PO DAILY #30 caps 11/06/21 11/13/21 ciprofloxacin HCl 500 mg tablet 500 mg PO Q12H #14 tabs 11/10/21 11/13/21 (Cipro) Previous Rx's Medication Instructions Recorded silodosin 4 mg capsule (Rapaflo) 4 mg PO DAILY #30 caps 11/06/21 ciprofloxacin HCl 500 mg tablet 500 mg PO Q12H #14 tabs 11/10/21 (Cipro) Allergies Allergy/AdvReac Type Severity Reaction Status Date / Time atorvastatin Allergy Intermediate chest pain Verified 11/10/21 19:35 alfuzosin AdvReac Intermediate Skin Rash Unverified 11/10/21 19:35 bupropion AdvReac Intermediate PASSED Verified 11/10/21 19:35 OUT tamsulosin AdvReac throat Verified 11/10/21 19:35 burning, chest pressure, stomach discomfort General Stated Complaint: Urinary OBEY: 3 Review of Systems All systems reviewed & are unremarkable except as noted in HPI and below PFSH All Active Problems (Updated 11/13/21 @ 20:42 by Tammie Corado DO) Status post laparoscopic hernia repair (Acute) Acute urinary retention (Acute) Urinary retention (Acute) Urinary tract infection (Acute) Paraesophageal hernia (Acute 06/14/17) Raman Srinivasan MD [facility] [place] Reflux esophagitis (Acute 03/04/17) 03/01/17 Dr. Payne [facility] [place] endoscopy RH Right flank pain (Acute) Left upper quadrant abdominal pain (Acute) Medical History Abnormal auditory perception (12/28/13) Benign prostate hyperplasia Decreased libido (~02/27/20) Feeling of incomplete bladder emptying (02/27/20) History of rheumatic fever (02/16/11) Pt. states when he was [age] years. Pt. states he has had no issues with his heart, he said years and years ago he was told he had a heart murmur but nothing has ever been said in years per pt. 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) Increased urinary frequency (11/25/15) Lower urinary tract symptoms (LUTS) (05/01/16) Meralgia paresthetica of right side (05/01/16) Osteoarthritis of left hip 01/22/18 [facility] Overweight (BMI 25.0-29.9) (11/15/14) usual 205-215 Right leg paresthesias (11/09/13) R lateral thigh; onset Sensorineural hearing loss, bilateral (01/10/15) Tinnitus of both ears (11/09/13) URI (upper respiratory infection) Vitreous detachment of right eye (11/15/14) decr lateral field R eye, Dr Gary Glover, [place] Surgical History Paraesophageal Hernia repair (07/29/17) Done at [facility] [place] Laparoscopically w/Intraoperative Upper Endo UGI w/ Bx (02/28/17) UGI w/ bx to break ring (no histology) (04/11/17) Vasectomy vasectomy , reversal 01/1993 Family History Mother , Breast Cancer at age 86. Neoplasm Father , cardiac issues at age 70. Heart disease Brother Age: 74 No problems noted. Social History Smoking/Tobacco Use Status: Former Tobacco Use Quit Date: 02/11/99 Tobacco: How many years used: 25 Smokeless tobacco user: snuff Quit status: quit date established (2004) Second Hand Exposure: No Smoking risk assessment performed?: Yes Alcohol Intake: current Alcohol Intake frequency: 0-2 drinks per day Alcohol type: beer Drug use: Never Substance use type: does not use Adopted: No Caregiver/Support person: No Foster care: No Household members: spouse Housing: house Number of Children: 3 number of grandchildren: 1 Communication Needs: Hard of Hearing and Corrective Lenses Education Level: high school Do you need help understanding health information?: Rarely 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 Pets and animals: Yes Pets and animals: cat(s) and dog(s) Sexually active: No Do you think of yourself as: straight/heterosexual Current gender identity: male What is your relationship status?: How often do you talk on the phone with friends or family?: once per week How often do you attend nondenominational or taoism services?: decline to answer Do you belong to any clubs or organized social groups?: yes Panel score (0-1 are the most socially isolated patients): 2 What type of physical activity do you participate in: walking Duration: 15-30 minutes/day Frequency: 3-4 times per week Geraldine/Jehovah'S Witness: None Special geraldine needs: No Seatbelt use: always Helmet use: Yes Helmet use: sometimes Drive intox or ride w/intox high lift driver: No Do you feel safe at home: Yes Do you feel safe in your relationship?: Yes Exam Const General: cooperative, comfortable and no acute distress Orientation: alert and oriented x3 Resp Effort & Inspection: normal respiratory effort Auscultation: clear to auscultation bilaterally Cardio Rate: regular rate Rhythm: regular rhythm GI Other: No CVA tenderness, no abdominal tenderness Skin General skin exam: no rashes or lesions noted Neuro General: patient alert and patient oriented x3 Course Vital Signs Vital signs: Vital Signs Temperature 36.7 C 11/10/21 19:29 Pulse 104 H 11/10/21 19:29 Respiratory Rate 18 11/10/21 19:29 Blood Pressure 140/78 11/10/21 19:29 Pulse Oximetry 96 11/10/21 19:29 Temperature 36.7 C 11/10/21 19:29 Temperature Source Temporal Artery Scan 11/10/21 19:29 Pulse 104 H 11/10/21 19:29 Respiratory Rate 18 11/10/21 19:29 Respiratory Effort Non-Labored 11/10/21 19:33 Blood Pressure 140/78 11/10/21 19:29 Blood Pressure Position Sitting 11/10/21 19:29 Pulse Oximetry 96 11/10/21 19:29 Oxygen Delivery Method Room Air 11/10/21 19:29 Oxygen Flow Rate 0 11/10/21 19:29 Pain Level 8 11/10/21 19:29 Lab/Test Results Lab/Test Results: 11/10/21 20:14 Urine - Reflex from Ua Urine Culture - Final Serratia Marcescens Laboratory Tests Range/Units 11/10/21 20:14 Urine Color (Yellow) Brown Urine Clarity (Clear) Turbid Urine pH (5-8) 6.0 Ur Specific [place] (1.005-1.025) >= 1.030 H Urine Protein (Negative) mg/dL >=300 H Urine Ketones (Negative) mg/dL Trace H Urine Blood (Negative) Large H Urine Nitrite (Negative) Positive H Urine Bilirubin (Negative) Moderate H Urine Urobilinogen (Up TO 0.2) EU/dL 1.0 H Ur Leukocyte Esterase (Negative) Large H Urine RBC (0-2) HPF >50 H Urine WBC (0-5) HPF Ur Epithelial Cells Not Applicable Urine Crystals Not Applicable Urine Bacteria Not Applicable Urine Mucus Not Applicable Ur Culture Indicated? Yes Urine Glucose (Negative) mg/dL Negative
== END 2021-11-10 21:17 | disposition home or self-care (01) ==
PROVIDERS: Emergency Provider Physician Assistant; PCP Nurse Practitioner Adult Health
DX: N39.0 Urinary tract infection, site not specified (principal); Z87.891 Personal history of nicotine dependence
CPT/HCPCS: 87077; 99283; 81003; 81015; 87086; 87186; 99284

== ENCOUNTER 2022-05-17 06:51 | Day surgery (SDC) | payer BC, SELFPAY ==
--- NOTE | 2022-05-16 20:13 | W.PM.DSUDISC ---
Date of service: 05/17/22 Time of Service: 08:48 Discharge Plan Disposition Patient Disposition: Home Condition: Good Discharge Details Reason For Visit: Colonoscopy Attending Provider: Gary Lees Primary Care Provider: Kinjal Krishna Home Meds and New Rx's Prescriptions: Continued clotrimazole 1 % cream 1 applic Transdermal BID PRN (Reason: tinea rash) Qty: 30 1RF Rx Instructions: Apply liberally to leg, groin and flank when needed for fungal rash hydrocortisone acetate 1 % ointment 1 applic Topical BID PRN (Reason: itchy rash) Qty: 30 1RF Rx Instructions: Apply thin layer to leg, groin, flank and back, as needed, for itchy rash silodosin [Rapaflo] 4 mg capsule 8 mg PO DAILY Rx Instructions: must administer with a meal/food Discontinued bisacodyl [Dulcolax (bisacodyl)] 5 mg tablet,delayed release (DR/EC) 5 mg PO ONCE Qty: 4 0RF Rx Instructions: Take according to provider's instructions for colonoscopy prep. polyethylene glycol 3350 17 gram/dose powder 17 g PO ONCE Qty: 238 0RF Rx Instructions: To be taken as directed by prescriber's office for colonoscopy prep. Discharge Instructions Instructions: Diverticulosis (GEN), Diverticulosis Diet (GEN), Hemorrhoids (GEN) Additional Instructions: Qi, we were able to complete your colonoscopy today without any difficulty. You have some mild diverticulosis. We have attached some information here regarding diverticulosis and general management principles. You also have some very mild internal hemorrhoids. Otherwise, I did not see any signs of tumors or polyps. You should consider another colonoscopy in 10 years to reduce your chances of dying from colon cancer over the course of your lifetime. 1. If tolerated, consume a soft, low fiber diet for 1-2 days. 2[address] Do not drive, drink alcohol, operate machinery, make critical decisions, or do activities that require coordination or balance for 24 hours. 3. Because air was put into your colon during the procedure, expelling air from your rectum (passing gas or farting) is normal. 4. You may not have a bowel movement for 1-3 days because of the colonoscopy prep. This is normal. 5. Go directly to the emergency room if you notice any of the following: Develop chills (warm to touch), or if you have a thermometer and your temperature is above 101 Difficulty breathing or difficultly swallowing Persistent vomiting Severe abdominal pain, other than gas cramps Severe chest pain Black, tarry stools Any bleeding ? exceeding one tablespoon 6. Call your physician if the site where your intravenous was started becomes red, swollen, painful, and warm to touch. 7. Your physician has reviewed your pre-procedure medications. Please continue to take those medications as previously ordered. You will be given specific information/education regarding any changes to your medications before leaving. Activity:: Activity as Tolerated Diet:: As Tolerated DS: Diagnosis Discharge Diagnosis (1) Screening for colon cancer: Status: Acute Asessment and Plan: Normal screening colonoscopy. Follow-up with the next one in 10 years
--- NOTE | 2022-05-16 20:15 | W.COLOREPORT ---
Date of service: 05/17/22 Time of Service: 08:50 Colonoscopy Report Date of procedure: 05/17/22 Pre-op diagnosis general: Screening colonoscopy Post-op diagnosis procedure note: other (Internal hemorrhoids, diverticulosis) Procedure: Colonoscopy Surgeon: Gary Lees Anesthesia Type: General:No Airway Estimated blood loss (mL): 0 Pathology: none sent Complications: None Disposition: same day Indications: Weslye is a 66 year old male following up for his next screening colonoscopy Prep: Miralax/Dulcolax Procedure Start Time: 08:22 Procedure End Time: 08:35 Retraction Time: 8 Findings: Grade 1 internal hemorrhoids, rare left-sided diverticulosis Procedure Description: After the induction of monitored anesthetic care, and with the patient in left lateral decubitus position, I began by performing an external anorectal exam.? Perineum and skin were normal, as was the anal verge.? There were some fibrosed skin tags consistent with old external hemorrhoids.? Next, I performed a digital rectal exam.? I did not appreciate any abnormal findings.? Next, I advanced a colonoscope into the rectal vault.? I performed retroflexion.? There are grade 1 internal hemorrhoids.? Using insufflation, I then advanced the colonoscope beyond the rectal folds and into the sigmoid colon before advancing towards the cecum.? The quality of the prep was excellent.? The scope was noted to be in the cecum by identification of the ileocecal valve and appendiceal orifice.? I then began withdrawing the colonoscope using repeated irrigation as necessary for full evaluation of the colonic mucosa. There were some rare small mouth diverticula around the splenic flexure. once the scope was withdrawn to the level of the rectum, great care was taken to examine portions of the rectal folds.? Finally, the scope was withdrawn and the patient was brought to the same-day surgery recovery unit as the anesthetic wore off. ?The findings and instructions were shared with the patient prior to discharge.
[2022-05-17 07:00] VITALS: BP 121/71; PULSE 64; RESP 16; TEMP 36.4; O2SAT 98
[2022-05-17] MEDS: Lactated Ringers 1,000 ML 80 ML IV (07:24)
--- NOTE | 2022-05-17 07:35 | ANES.PREOP_ITS ---
General Info Date of Service Date Performed: 05/17/22 Height: 5 ft 10 in Weight: 94.5 kg Body Mass Index (BMI): 29.9 Surgical Procedure: Operation Date: 05/17/22 08:20 Proposed Procedure Side Surgeon p Colonoscopy Gary Lees MD Meds Allergies and Home Medications Allergies Allergy/AdvReac Type Severity Reaction Status Date / Time atorvastatin Allergy Intermediate chest pain Verified 05/17/22 07:08 alfuzosin AdvReac Intermediate Skin Rash Unverified 05/17/22 07:08 bupropion AdvReac Intermediate PASSED Verified 05/17/22 07:08 OUT tamsulosin AdvReac throat Verified 05/17/22 07:08 burning, chest pressure, stomach discomfort Home Medication Medication Instructions Recorded silodosin 4 mg capsule (Rapaflo) 8 mg PO DAILY 11/23/21 clotrimazole 1 % topical cream 1 applic transdermal BID PRN tinea 01/29/22 rash #30 grams hydrocortisone acetate 1 % topical 1 applic topical BID PRN itchy 01/29/22 ointment rash #30 grams Current Visit Medications: Current Medications Generic Name Dose Route Start Last Admin Trade Name Freq PRN Reason Stop Dose Admin Ringer's Solution 1,000 mls @ 80 mls/hr 05/17/22 06:00 05/17/22 07:24 IV 06/15/22 23:59 80 mls/hr INFUSION GAIL Administration IV Miscellaneous Supplies 1 each 05/17/22 06:00 Iv Access IV 06/15/22 23:59 DIRECTED GAIL Sodium Chloride 0 ml 05/17/22 06:00 Normal Saline Flush 10 Ml Syr IV 06/15/22 23:59 PRN PRN Sodium Chloride 0 ml 05/17/22 06:00 Normal Saline 10 Ml Vial IJ 06/15/22 23:59 DIRECTED PRN Sterile Water 0 ml 05/17/22 06:00 Water,Injection,Sterile 10 Ml Vial IJ 06/15/22 23:59 DIRECTED PRN PFSH Active Problems Active Problems: Problem Status Onset Code Screening for colon cancer Z12.11 Erectile dysfunction N52.9 Nocturia R35.1 Incomplete bladder emptying R33.9 Benign prostatic hyperplasia with lower urinary tract symptoms N40.1 Hyperlipidemia 02/16/11 E78.5 BPH loc w urin obs/LUTS ~11/2021 N40.1 Medical History Medical History Abnormal auditory perception (12/28/13) Benign prostate hyperplasia Decreased libido (~02/27/20) Feeling of incomplete bladder emptying (02/27/20) History of rheumatic fever (02/16/11) Pt. states when he was [age] years. Pt. states he has had no issues with his heart, he said years and years ago he was told he had a heart murmur but nothing has ever been said in years per pt. 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 Overweight (BMI 25.0-29.9) (11/15/14) usual 205-215 Paraesophageal hernia (06/14/17) Raman Srinivasan MD [facility] [place] Reflux esophagitis (03/04/17) 03/01/17 Dr. Payne [facility] endoscopy RH Right flank pain Right leg paresthesias (11/09/13) R lateral thigh; onset Sensorineural hearing loss, bilateral (01/10/15) Tinnitus of both ears (11/09/13) URI (upper respiratory infection) Vitreous detachment of right eye (11/15/14) decr lateral field R eye, Dr Gary Glover, [place] Medical History Comments:: Last surgery at [facility], pt reports needing straight cath postop; he's worried about that Surgical History Surgical History Paraesophageal Hernia repair (07/29/17) Done at [facility] Laparoscopically w/Intraoperative Upper Endo Status post laparoscopic hernia repair (~11/2021) UGI w/ Bx (02/28/17) UGI w/ bx to break ring (no histology) (04/11/17) Vasectomy vasectomy , reversal 01/1993 Tobacco Smoking/Tobacco Use Status: Former Tobacco Use Smokeless tobacco user: snuff Passive smoking exposure: No Second hand exposure: No Alcohol Alcohol Intake: current Alcohol intake frequency: 0-2 drinks per day Alcohol type: beer and hard liquor Substance Use Substance use: Never Substance use type: does not use Vital Signs and Lab Results Vital Signs Most Recent Vital Signs in EMR: Most Recent Vital Signs Temp Pulse Resp BP Pulse Ox 36.4 C L 64 16 121/71 98 05/17/22 07:00 05/17/22 07:00 05/17/22 07:00 05/17/22 07:00 05/17/22 07:00 Lab Results Blood Type / Crossmatch: No Data to Display Complete Blood Count: No Data to Display Complete Metabolic Panel: No Data to Display Liver Function Panel: No Data to Display Coagulation Panel: No Data to Display Cardiac Panel: No Data to Display Arterial Blood Gas: No Data to Display Venous Blood Gas: No Data to Display Pancreas Panel: No Data to Display Thyroid Panel: No Data to Display Infectious Disease: No Data to Display Blood Cultures: No Data to Display Toxicology Panel: No Data to Display Anesthesia Assessment and Plan Anesthesia History Personal History: No History of Anesthesia Complications Family History: No Family History of Anesthesia Complications Exercise Tolerance Exercise Tolerance: Metabolic Equivalents>4 Pertinent Negatives Pertinent Negatives: No Symptoms of GERD Cardiac & Pulmonary Exam Cardiac Exam: Normal S1/S2 Heart Sounds Pulmonary Exam: Clear Bilateral Breath Sounds Implantable Cardiac Device Does patient have a Pacemaker or an ICD?: No Airway Exam Known Difficult Airway: No Mallampati Class: 1 Mouth Opening: Normal (> 3cm) Thyromental Distance: Greater than 3 cm Neck Range of Motion: Full ROM Neck Circumference: Normal Teeth Condition: Normal Dentition ASA Classification ASA Score: ASA 2 Emergency Case?: No NPO Status NPO Status: NPO Clears >2 hours, Solids >8 hours Anesthesia Plan Resuscitation Status: Full Code Anesthesia Technique: General Anesthesia Airway Planned: Natural Airway Monitors Used: Standard Monitors
[2022-05-17 08:09] VITALS: BMI 29.9
[2022-05-17 08:45] VITALS: BP 107/67; PULSE 59; RESP 16; TEMP 36.5; O2SAT 96
--- NOTE | 2022-05-17 08:57 | W.ANESPOSTOP ---
Postoperative Evaluation Date, Time and Location Date Performed: 05/17/22 Time Performed: 08:58 Patient Location: Day Surgery Unit Vital Signs Most Recent Imported Vital Signs: Most Recent Vital Signs Temp Pulse Resp BP Pulse Ox 36.5 C 59 L 16 107/67 96 05/17/22 08:45 05/17/22 08:45 05/17/22 08:45 05/17/22 08:45 05/17/22 08:45 Pain Score Most Recent Pain Score: Most Recent Pain Score Pain Level 0 05/17/22 08:45 Assessment Mental Status: Awake (Alert & Oriented to Patient Baseline) Airway and Respiratory Function: Patent airway with normal (patient baseline) respiratory exam Cardiovascular Function: Hemodynamically Stable Hydration Status: Adequately Hydrated Nausea & Vomiting: No Nausea or Vomiting Pain: Pt. Denies Any Pain Peripheral Nerve Block: Patient did not receive a nerve block
[2022-05-17 09:23] VITALS: BP 103/59; PULSE 58; RESP 16; TEMP 36.5; O2SAT 96
== END 2022-05-17 09:38 | disposition home or self-care (01) ==
PROVIDERS: PCP Nurse Practitioner Adult Health; Visit Provider Surgery
PROC: 0DJD8ZZ Inspection of Lower Intestinal Tract, Via Natural or Artificial Opening Endoscopic (ICD-10-PCS; CPT 45378; principal; 2022-05-17 08:15)
DX: Z12.11 Encounter for screening for malignant neoplasm of colon (principal); K64.8 Other hemorrhoids; K57.30 Diverticulosis of large intestine without perforation or abscess without bleeding
CPT/HCPCS: 45378

== ENCOUNTER 2023-02-08 03:35 | Outpatient (CLI) | payer BC, SELFPAY ==
[2023-02-08 08:10] LABS: ALT 41 U/L (16-63); AST 22 U/L (15-37); Albumin 3.5 g/dL (3.4-5.0); Alkaline Phosphatase 79 U/L (46-116); Anion Gap 5.7 mmol/L (3-11); BUN 16 mg/dL (7-18); Bilirubin, Total 0.5 mg/dL (0.2-1.0); CO2 30.3 mmol/L (21.0-32.0); Calculated LDL 189 mg/dL (<100); Chloride 104 mmol/L (98-107); Cholesterol 271 mg/dL (<200); Estimated GFR 82.49 (mL/min/1.73m2); Glucose 102 mg/dL (74-106); HDL Cholesterol 62 mg/dL (40-60); Potassium 4.3 mmol/L (3.5-5.1); Sodium 140 mmol/L (136-145); Total Protein 7.1 g/dL (6.4-8.2); Triglyceride 103 mg/dL (<150)
[2023-02-08 20:32] LABS: PSA, Screening 1.4 ng/mL (<=4.5)
== END 2023-02-08 03:36 | disposition home or self-care (01) ==
LOC: LBO 03:35
PROVIDERS: PCP Nurse Practitioner Adult Health; Referring Provider Nurse Practitioner Adult Health; Visit Provider Nurse Practitioner Adult Health
DX: Z13.220 Encounter for screening for lipoid disorders (principal); Z13.1 Encounter for screening for diabetes mellitus; Z12.5 Encounter for screening for malignant neoplasm of prostate
CPT/HCPCS: 36415; 80053; 80061; 84153

== ENCOUNTER → 2023-02-18 22:25 | Outpatient (CLI) | payer BC, SELFPAY ==
--- NOTE | 2023-02-18 12:30 | DI.RAD_ITS ---
Exam(s) XR CHEST 2V PA LATERAL EXAM: XR CHEST 2V PA LATERAL CLINICAL HISTORY: 2m cough since COVID; r/o acute process R05.3 COUGH U09.9 POST COVID TECHNIQUE: 2D digital imaging was performed of the chest. Two images were obtained. PA and lateral views were obtained. COMPARISON: CR XR RIBS RT W PA LAT CHEST from 05/25/2020 FINDINGS: MEDIASTINUM: Normal. HEART: Normal. PULMONARY VASCULATURE: Normal. LUNGS: Clear. PLEURAL SPACE: No pleural effusion or pneumothorax. BONE:Within normal limits for the patient's age. OTHER FINDINGS:Normal. IMPRESSION: No acute pulmonary findings. DATA REPOSITORY: RADIATION DOSE DELIVERED:
== END ==
PROVIDERS: PCP Nurse Practitioner Adult Health; Visit Provider Nurse Practitioner Adult Health
DX: R05.3 Chronic cough (principal); U09.9 Post COVID-19 condition, unspecified
CPT/HCPCS: 71046

== ENCOUNTER 2023-05-20 04:13 | Outpatient (CLI) | payer BC, SELFPAY ==
[2023-05-20 07:42] LABS: Calculated LDL 133 mg/dL (<100); Cholesterol 210 mg/dL (<200); HDL Cholesterol 60 mg/dL (40-60); Triglyceride 88 mg/dL (<150)
== END 2023-05-20 04:14 | disposition home or self-care (01) ==
LOC: LBO 04:13
PROVIDERS: PCP Nurse Practitioner Adult Health; Referring Provider Nurse Practitioner Adult Health; Visit Provider Nurse Practitioner Adult Health
DX: E78.5 Hyperlipidemia, unspecified (principal)
CPT/HCPCS: 36415; 80061

== ENCOUNTER → 2023-08-27 13:24 | Outpatient (BNVA) | payer MEDICARE, OTHER, SELFPAY | PROVIDERS: PCP Nurse Practitioner Adult Health; Referring Provider Nurse Practitioner Adult Health; Visit Provider Surgery | DX: K64.8 Other hemorrhoids (principal) | CPT/HCPCS: 99213 ==

== ENCOUNTER 2023-09-18 03:51 | Emergency (ER) | payer MEDICARE, OTHER, SELFPAY ==
[2023-09-18 03:54] VITALS: BP 152/64; PULSE 66; RESP 16; TEMP 37.1; O2SAT 97
--- NOTE | 2023-09-18 04:15 | DI.RAD_ITS ---
Exam(s) XR CHEST 2V PA LATERAL EXAM: XR CHEST 2V PA LATERAL CLINICAL HISTORY: aspiration, foreign body sensation. TECHNIQUE: 2D digital imaging was performed. COMPARISON: Chest x-ray 02/18/2023 FINDINGS: 2 views: Heart size is normal. The mediastinum is not widened. There is unchanged platelike atelectasis or scarring in the left lung base. Also mild elevation left hemidiaphragm again noted. Tenting of the right hemidiaphragm also unchanged. No new infiltrates nor pleural effusions. No pulmonary edema. No fractures. IMPRESSION: No acute pulmonary findings.Lung base findings as above, unchanged from 02/18/2023 DATA REPOSITORY: RADIATION DOSE DELIVERED:
--- NOTE | 2023-09-18 04:15 | DI.RAD_ITS ---
Exam(s) XR SOFT TISSUE NECK EXAM: XR SOFT TISSUE NECK CLINICAL HISTORY: aspiration, foreign body sensation. TECHNIQUE: 2D digital imaging was performed. COMPARISON: CR XR CHEST 2V PA LATERAL from 09/18/2023 FINDINGS: Two views with soft tissue technique: The epiglottis is not swollen and there is no prevertebral soft tissue swelling. No abnormal soft ti ssue swelling in the nasopharynx. No radiopaque foreign bodies evident. The tissues at the level of the larynx appear slightly prominent, possibly significant. IMPRESSION: Some soft tissue swelling noted at the level of the larynx. No radiopaque foreign body. Discussed with ER physician DATA REPOSITORY: RADIATION DOSE DELIVERED:
--- NOTE | 2023-09-18 04:44 | W.ED.GENAD ---
Discharge Plan Disposition Patient Disposition: Home Condition: Good Discharge Details Clinical Impression: Foreign body sensation, throat Primary Care Provider: Kinjal Krishna ED Provider: Flavia Gilmore Home Meds and New Rx's Prescriptions: Continued silodosin [Rapaflo] 4 mg capsule 8 mg PO DAILY Rx Instructions: must administer with a meal/food hydrocortisone 2.5 % cream 1 applic topical TID PRN (Reason: skin irritation/hemorrhoid) Qty: 20 1RF Rx Instructions: Apply thin layer to hemorrhoid/s up to 3x/d PRN irritation. amoxicillin 875 mg tablet 875 mg PO DAILY Patient Comments: TAKE ONE TABLET BY MOUTH TWICE A DAY FOR 5 DAYS Discharge Instructions Instructions: Acid reflux and GERD in adults Additional Instructions: You will need to see ENT; a referral has been sent. They should call to schedule an appointment; if you do not hear from them by tomorrow please call Call your primary care doctor today to schedule an appointment to followup on your visit here. Mention your blood pressure at that visit as it is high here in the ED. Return to the emergency department for new or worsening symptoms including choking, difficulty breathing, chest pain, inability to swallow, or if you have any other concerns. Referrals: [facility] [Provider Group] Kinjal Krishna, [employer] [Primary Care Provider] - [facility] General Mode of arrival: ambulatory. Date/Time Provider Initiated Documentation: 09/18/23 03:52. Limitations to Documentation: no limitations. Information obtained by: patient and family. HPI Narrative: 67yo M with hx GERD s/p hiatal hernia repair presenting with foreign body sensation in throat. Has had congestion, post-nasal drip, and cough for two and a half months, saw his PCP about two weeks ago for this and was prescribed amoxicillin and prednisone. Over this period of time he has had occasional episodes at night where the cough causes him to gag and he has some difficultly breathing. This morning he woke up with cough, felt like he was choking. Was able to eventually clear his throat and breathing feels normal now. He has had similar episodes in the past but never this bad. Voice is hoarse currently and he feels like 'something is stuck' in his throat. No difficulty swallowing. No chest pain at any point. He is otherwise in his usual state of health with no fevers, chills, rash, nasuea, vomiting, or other concerns. Related Data Home Medications ?Medication ?Instructions ?Recorded ?Confirmed silodosin 4 mg capsule (Rapaflo) 8 mg PO DAILY 11/23/21 09/18/23 hydrocortisone 2.5 % topical cream 1 applic topical TID PRN skin 07/24/23 09/18/23 irritation/hemorrhoid #20 grams amoxicillin 875 mg tablet 875 mg PO DAILY 09/18/23 09/18/23 Previous Rx's ?Medication ?Instructions ?Recorded hydrocortisone 2.5 % topical cream 1 applic topical TID PRN skin 07/24/23 irritation/hemorrhoid #20 grams Allergies Allergy/AdvReac Type Severity Reaction Status Date / Time atorvastatin Allergy Intermediate chest pain Verified 09/03/23 15:43 alfuzosin AdvReac Intermediate Skin Rash Verified 09/03/23 15:43 bupropion AdvReac Intermediate PASSED Verified 09/03/23 15:43 OUT tamsulosin AdvReac throat Verified 09/03/23 15:43 burning, chest pressure, stomach discomfort General Stated Complaint: ForeignBody OBEY: 3 Review of Systems Narrative: see HPI Exam Narrative Exam Narrative: General: Alert, well appearing, well nourished, in no acute distress. Voice slightly hoarse. Head: Normocephalic, atraumatic Neck: Trachea midline, ?Neck supple. No anterior neck tenderness. ENT: ?MMM.? No oropharygeal lesions or exudate. Uvula midline. Cardiac: ?RRR, no murmurs appreciated Resp: No respiratory distress. CTAB. No stridor. Abd: ?Soft, non-distended, nontender Extremities: ?No deformities.? No peripheral edema. Neurologic: GCS 15. ? Moves all extremities freely against gravity Course Vital Signs Vital signs: Vital Signs Temperature 37.1 C 09/18/23 03:54 Pulse 66 09/18/23 03:54 Respiratory Rate 16 09/18/23 03:54 Blood Pressure 152/64 H 09/18/23 03:54 Pulse Oximetry 97 09/18/23 03:54 Temperature 37.1 C 09/18/23 03:54 Temperature Source Temporal Artery Scan 09/18/23 03:54 Pulse 66 09/18/23 03:54 Respiratory Rate 16 09/18/23 03:54 Respiratory Effort Normal 08/07/24 03:59 Respiratory Pattern Normal 09/18/23 03:59 Blood Pressure 152/64 H 09/18/23 03:54 Blood Pressure Position Sitting 09/18/23 03:54 Pulse Oximetry 97 09/18/23 03:54 Oxygen Delivery Method Room Air 09/18/23 03:54 Oxygen Flow Rate 0 09/18/23 03:54 Pain Level 0 09/18/23 03:54 Medical Decision Making 67yo M with hx GERD s/p hiatal hernia repair presenting with foreign body sensation in throat. Two months of cough/congestion/post-nasal drip, some night time episodes of coughing wtih associated gagging/choking. This morning most severe episode yet, felt like he was unable to breathe. Eventually able to clear throat. Currently feels back to normal aside from hoarse voice and foreign body sensation. No chest pain at any point. Vital signs reassuring. No respiratory distress or stridor on exam, normal intraoral exam with midline uvula. Does have slightly hoarse voice. Presentation favors aspiration/reflux; will give GI cocktail, get plain films chest and neck. CXR independently reviewed, no focal pneumonia or pneumothorax or foreign body or evidence of aspiration on my view, agree with radiology read below. Neck XR independently reviewed, no radioopaque foreign body on my view, agree with radiology read below. On reassessment he remains well appearing with reassuring vital signs. No respiratory distress, managing secretions. Continued foreign body sensation. Will refer to ENT for endoscopy. Discharged home; discharge instructions and return precautions were reviewed with patient who verbalized understanding. All questions were answered and he is in full agreement with the plan. Imaging Data Radiologic Study: Imaging: X-Ray Radiologist's impression: CXR:IMPRESSION: No acute pulmonary findings.Lung base findings as above, unchanged from 02/18/2023 Neck: IMPRESSION: Some soft tissue swelling noted at the level of the larynx. No radiopaque foreign body. Quality:SDOH Health Related Social Needs: Health related social needs risk of homeless Health related social needs details N/A PFSH All Active Problems (Updated 09/18/23 @ 06:33 by Flavia Gilmore MD) Foreign body sensation, throat (Acute) Internal hemorrhoids (Acute) Nocturia (Acute) [facility] - 02/25/23 Actinic keratoses (Acute) Face IFG (impaired fasting glucose) (Acute ~01/2023) 102 with A1C 5.7% Post-COVID chronic cough (Acute) Erectile dysfunction (Chronic) [facility] Incomplete bladder emptying (Acute) Urinary retention--[facility] Benign prostatic hyperplasia with lower urinary tract symptoms (Chronic) [facility] Hyperlipidemia (Chronic 02/16/11) ASCVD score 12%-->not a candidate for a statin Risk calculated 6% 01/10/06; GOAL LDL<160; responded to plant sterols in past; 11/2014 Risk 9% 02/2023: ASCVD risk 12.7%-->intermediate risk, weight pros vs. cons statin BPH loc w urin obs/LUTS (Chronic ~11/2021) Urology ([place]) Medical History (Updated 09/18/23 @ 06:33 by Flavia Gilmore MD) Screening for colon cancer (~05/2022) History of wrist fracture Left upper quadrant abdominal pain Decreased libido (~02/27/20) Feeling of incomplete bladder emptying (02/27/20) Benign prostate hyperplasia URI (upper respiratory infection) Right flank pain Abnormal auditory perception (12/28/13) History of rheumatic fever (02/16/11) Pt. states when he was 4 or 5 years. Pt. states he has had no issues with his heart, he said years and years ago he was told he had a heart murmur but nothing has ever been said in years per pt. 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 Payne [facility] endoscopy RH Paraesophageal hernia (06/14/17) Raman Srinivasan MD [facility] Overweight (BMI 25.0-29.9) (11/15/14) usual 205-215 Meralgia paresthetica of right side (05/01/16) Lower urinary tract symptoms (LUTS) (05/01/16) Increased urinary frequency (11/25/15) Surgical History (Updated 04/09/23 @ 15:09 by Claudia Green RN) S/P skin biopsy (~03/2023) Dr Jamie Garcia inferior postauricular scalp, shave Bx solar lentigo,irritated S/P colonoscopy (~05/2022) Status post laparoscopic hernia repair (~11/2021) Vasectomy vasectomy , reversal 01/1993 UGI w/ bx to break ring (no histology) (04/11/17) UGI w/ Bx (02/28/17) Paraesophageal Hernia repair (07/29/17) Done at [facility] Laparoscopically w/Intraoperative Upper Endo Family History Mother , Breast Cancer at age 86. Neoplasm Breast cancer Father , cardiac issues at age 70. Heart disease Social History Smoking/Tobacco Use Status: Former Tobacco Use Quit Date: 02/11/99 Tobacco: How many years used: 25 Smokeless tobacco user: snuff Quit status: quit date established (2004) Second Hand Exposure: No Smoking risk assessment performed?: Yes Alcohol Intake: current Alcohol Intake frequency: 0-2 drinks per day Alcohol type: beer and hard liquor Drug use: Never Substance use type: does not use Adopted: No Caregiver/Support person: No Foster care: No Household members: spouse Housing: house Number of Children: 3 number of grandchildren: 1 Communication Needs: Hard of Hearing and Corrective Lenses Education Level: high school Do you need help understanding health information?: Rarely 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 Pets and animals: Yes Pets and animals: cat(s) and dog(s) Sexually active: No Do you think of yourself as: straight/heterosexual Current gender identity: male What is your relationship status?: How often do you talk on the phone with friends or family?: once per week How often do you get together with friends or relatives?: once per week How often do you attend druze or congregational services?: decline to answer Do you belong to any clubs or organized social groups?: yes Panel score (0-1 are the most socially isolated patients): 2 What type of physical activity do you participate in: walking Duration: < 15 minutes/day Frequency: 1-2 times per week Geraldine/Scientology: None Special geraldine needs: No Seatbelt use: always Helmet use: Yes Helmet use: sometimes Drive intox or ride w/intox team truck driver: No Do you feel safe at home: Yes Do you feel safe in your relationship?: Yes PAWSS Have you Been Recently Intoxicated or Drunk Within the Last 30 days?: Yes Have you Ever Experienced Previous Episodes of Alcohol Withdrawal?: No Have you ever Experienced Withdrawal Seizures?: No Have you ever Experienced Delirium Tremens(DT)s?: No Have you ever undergone Alcohol Rehabilitation Treatment (i.e, inpt ot outpatient treatment programs)?: No Have you ever Experienced Blackouts?: No Have you ever Combined Alcohol with other Downers within the last 90 days?: No Have you ever Combined Alcohol with any other Substance of Abuse during the last 90 days?: No Positive Blood Alcohol level on Presentation? [PCS.BAL]: No Evidence of Increased Autonomic Activity (i.e. HR>120, tremor, sweating, agitation, nausea)?: No Result: 1
--- NOTE | 2023-09-18 06:43 | NUR.NOTE ---
Referral e-mailed to [facility]NT for 1-2 week f/u for esophageal fb sensation.Nursing Note:
--- NOTE | 2023-09-18 06:45 | DI.VRAD_ITS ---
PROCEDURE INFORMATION: Exam: XR Chest Exam date and time: 09/18/2023 4:28 AM Age: 67 years old Clinical indication: Other: Aspiration, foreign body sensation TECHNIQUE: Imaging protocol: Radiologic exam of the chest. Views: 2 views. COMPARISON: CR XR CHEST 2V PA LATERAL 02/18/2023 12:55 PM FINDINGS: Lungs: Unremarkable. No consolidation. Pleural spaces: Unremarkable. No pleural effusion. No pneumothorax. Heart/Mediastinum: Grossly stable. Bones/joints: Degenerative changes in the spine IMPRESSION: No acute findings. Dictated and Authenticated by: Michele Rodriguez MD. Ordering:MARILU Alejandro MD
--- NOTE | 2023-09-18 06:45 | DI.VRAD_ITS ---
PROCEDURE INFORMATION: Exam: XR Soft Tissue Neck Exam date and time: 09/18/2023 4:30 AM Age: 67 years old Clinical indication: Other: Aspiration, foreign body sensation TECHNIQUE: Imaging protocol: Radiologic exam of the soft tissues of the neck. COMPARISON: CR XR CHEST 2V PA LATERAL 09/18/2023 4:28 AM FINDINGS: Airway: Normal. No abnormal narrowing. Soft tissues: Normal. Normal epiglottis. Bones/joints: Degenerative changes in the spine IMPRESSION: No acute findings. No radiopaque foreign body noted Dictated and Authenticated by: Michele Rodriguez MD. Ordering:MARILU Alejandro MD
[2023-09-18 06:46] VITALS: BP 147/62; PULSE 68; RESP 16; TEMP 37; O2SAT 99
== END 2023-09-18 06:46 | disposition home or self-care (01) ==
PROVIDERS: Emergency Provider Student in an Organized Health Care Education/Training Program; PCP Nurse Practitioner Adult Health
DX: R09.A2 Foreign body sensation, throat (principal); R05.1 Acute cough
CPT/HCPCS: 99284; 70360; 71046; 99283

== ENCOUNTER 2023-10-09 09:22 | Day surgery (SDC) | payer MEDICARE, OTHER, SELFPAY ==
--- NOTE | 2023-10-08 19:31 | W.PREOPHP ---
Assessment and Plan Assessment and plan (1) Internal hemorrhoids: Status: Acute Assessment and plan: Wesley and Marie reviewed the plan for an anorectal exam under anesthesia. He had the chance to ask any other questions. We will proceed with the procedure as planned. History of Present Illness History of Present Illness Chief Complaint: Anal pain Narrative: Wesley is 67 year old. He has had several weeks of pain around his anus. Office exam seems consistent with internal hemorrhoids, but he has difficulty tolerating complete evaluation. Since that encounter he was seen by ENT for a sensation of a foreign body in his throat after URI. Otherwise, he seems to be improving overall. He is using some hydrocortisone cream around the anus, which has made things a little easier, but not provided total relief. PFSH All Active Problems Snoring (Acute) Foreign body sensation, throat (Acute) Internal hemorrhoids (Acute) Nocturia (Acute) [facility] - 02/25/23 Actinic keratoses (Acute) Face IFG (impaired fasting glucose) (Acute ~01/2023) 102 with A1C 5.7% Post-COVID chronic cough (Acute) Erectile dysfunction (Chronic) [facility] Incomplete bladder emptying (Acute) Urinary retention--[facility] Benign prostatic hyperplasia with lower urinary tract symptoms (Chronic) [facility] Hyperlipidemia (Chronic 02/16/11) ASCVD score 12%-->not a candidate for a statin Risk calculated 6% 01/10/06; GOAL LDL<160; responded to plant sterols in past; 11/2014 Risk 9% 02/2023: ASCVD risk 12.7%-->intermediate risk, weight pros vs. cons statin BPH loc w urin obs/LUTS (Chronic ~11/2021) Urology ([place]) Medical History Screening for colon cancer (~05/2022) History of wrist fracture Left upper quadrant abdominal pain Decreased libido (~02/27/20) Feeling of incomplete bladder emptying (02/27/20) Benign prostate hyperplasia URI (upper respiratory infection) Right flank pain Abnormal auditory perception (12/28/13) History of rheumatic fever (02/16/11) Pt. states when he was 4 or 5 years. Pt. states he has had no issues with his heart, he said years and years ago he was told he had a heart murmur but nothing has ever been said in years per pt. 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 Payne [facility] endoscopy RH Paraesophageal hernia (06/14/17) Raman Srinivasan MD [facility] Overweight (BMI 25.0-29.9) (11/15/14) usual 205-215 Meralgia paresthetica of right side (05/01/16) Lower urinary tract symptoms (LUTS) (05/01/16) Increased urinary frequency (11/25/15) Surgical History S/P skin biopsy (~03/2023) Dr Jamie Garcia inferior postauricular scalp, shave Bx solar lentigo,irritated S/P colonoscopy (~05/2022) Status post laparoscopic hernia repair (~11/2021) Vasectomy vasectomy , reversal 01/1993 UGI w/ bx to break ring (no histology) (04/11/17) UGI w/ Bx (02/28/17) Paraesophageal Hernia repair (07/29/17) Done at [facility] Laparoscopically w/Intraoperative Upper Endo Family History Mother , Breast Cancer at age 86. Neoplasm Breast cancer Father , cardiac issues at age 70. Heart disease Social History Smoking/Tobacco Use Status: Former Tobacco Use Quit Date: 02/11/99 Tobacco: How many years used: 25 Smokeless tobacco user: snuff Quit status: quit date established (2004) Second Hand Exposure: No Smoking risk assessment performed?: Yes Alcohol Intake: current Alcohol Intake frequency: 0-2 drinks per day Alcohol type: beer and hard liquor Drug use: Never Substance use type: does not use Adopted: No Caregiver/Support person: No Foster care: No Household members: spouse Housing: house Number of Children: 3 number of grandchildren: 1 Communication Needs: Hard of Hearing and Corrective Lenses Education Level: high school Do you need help understanding health information?: Rarely 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 Pets and animals: Yes Pets and animals: cat(s) and dog(s) Sexually active: No Do you think of yourself as: straight/heterosexual Current gender identity: male What is your relationship status?: How often do you talk on the phone with friends or family?: once per week How often do you get together with friends or relatives?: once per week How often do you attend hindu or pentecostal services?: decline to answer Do you belong to any clubs or organized social groups?: yes Panel score (0-1 are the most socially isolated patients): 2 What type of physical activity do you participate in: walking Duration: < 15 minutes/day Frequency: 1-2 times per week Geraldine/Mandaeism: None Special geraldine needs: No Seatbelt use: always Helmet use: Yes Helmet use: sometimes Drive intox or ride w/intox automobile drivers: No Do you feel safe at home: Yes Do you feel safe in your relationship?: Yes Meds Allergies and Home Medications Allergies Allergy/AdvReac Type Severity Reaction Status Date / Time atorvastatin Allergy Intermediate chest pain Verified 10/09/23 09:38 alfuzosin AdvReac Intermediate Skin Rash Verified 10/09/23 09:38 bupropion AdvReac Intermediate PASSED Verified 10/09/23 09:38 OUT tamsulosin AdvReac throat Verified 10/09/23 09:38 burning, chest pressure, stomach discomfort Home Medications ?Medication ?Instructions ?Recorded ?Confirmed ?Type silodosin 4 mg capsule (Rapaflo) 8 mg PO DAILY 11/23/21 10/09/23 History hydrocortisone 2.5 % topical cream 1 applic topical TID PRN skin 09/25/23 10/09/23 Rx irritation/hemorrhoid #30 grams Exam Const General: cooperative, healthy appearing and not in acute distress Neck Neck: normal visual inspection, no lymphadenopathy and supple Resp Effort & Inspection: normal respiratory effort Auscultation: clear to auscultation bilaterally Cardio Jugular venous pressure: no JVD Rate: regular rate Rhythm: regular rhythm Heart Sounds: S1 normal and S2 normal GI Inspection: normal to inspection Neuro General: patient alert, patient awake and patient oriented x3 Psych Appearance: grossly normal
--- NOTE | 2023-10-08 19:37 | PDOC.DSDIS_ITS ---
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 AVOID using for more than 14 consecutive days. Discharge Instructions Additional Instructions: Wesley, we were able to complete your exam today just as we discussed. I hope you are comfortable. I did find, and treat to large internal hemorrhoids. I hope this should provide some comfort. Moreover, however, you also have an anal fissure. This is a small tear in the skin around the anus. I suspect this is really the true source of your pain. There are number of ways to treat this, but generally I like to start with medications to see if that will help the problem. Years is relatively small, and I be optimistic that it will relieve th e pain, and hopefully allow this to heal. Unfortunately, the prescription to treat this is quite difficult to obtain locally. There is only 1 pharmacy in the area that will compound (or mix) the medication. The pharmacy is the [facility] pharmacy in [facility]. I did go ahead and call in that prescription today. It usually takes about 24 hours or so for them to make, and they will notify you once it is available. The fissure is certainly not an emergency, so please pick the medication up at your convenience and start it when you can. You will apply a thin layer of ointment to the anus once in the morning, and again once in the evening. It would be reasonable to stop the hydrocortisone while you are using this. However, if you find that the hydrocortisone does provide some relief that this ointment does not achieve, it is fine to use both. I instilled a fair amount of anesthetic in and around your anus, so hopefully that will help as well. With regards to the hemorrhoid bands, they are typically shed during bowel movements in about a week or so. Most patients will never noticed them coming off, but do not be alarmed if he see a little black rubber band in the toilet, or perhaps some blood clots within the first week. I have gone ahead and set up an appointment in the office on the at 9:30 AM. Will reassess at that point and see how things are going. I usually treat fissures for about 4 to 6 weeks total depending upon patient's symptoms. 1. Resume all of your regular medications. 2. Alternate over the counter tylenol and ibuprofen every 6 hours for the first 2 days, then use as needed. 3. Soak for 10-15 minutes in warm water, warm water mixed with half a cup of baking soda, or Epson salts after each bowel movement, or up to 5 times per day as needed for pain. 4. No heavy lifting until I see you in the office. 5.Call the office (or go directly to the emergency room after hours) if you notice any of the following: ? Develop chills (warm to touch), or if you have a thermometer ? and your temperature is above 101 ? Difficulty breathing or difficultly swallowing ? Persistent vomiting ? Any bleeding ? exceeding one tablespoon 6. Call your physician if the site where your intravenous was started becomes red, swollen, painful, and warm to touch. Activity:: Activity as Tolerated Diet:: As Tolerated Discharge Orders Discharge Orders: Discharge Order (Routine); Ordered 10/08/23 Ordered By: Gary Lees DS: Diagnosis Discharge Diagnosis (1) Internal hemorrhoids: Status: Acute Asessment and Plan: Outpatient office follow-up
--- NOTE | 2023-10-08 19:42 | W.PM.OP ---
Date of service: 10/09/23 Time of Service: 12:36 Operative Note Operative Note DATE OF PROCEDURE: 10/09/23 PRE-OP DIAGNOSIS: Internal hemorrhoids Anal fissure PROCEDURE: Anorectal exam under anesthesia with internal hemorrhoid banding and fissure debridement SURGEON: Gary Lees ANESTHESIA TYPE: Local By Surgeon and MAC Refer to Anesthesia Record ESTIMATED BLOOD LOSS: 5 PATHOLOGY: none sent COMPLICATIONS: None Patient was transported to: same day Patient's condition: stable Indications: Wesley is a 67-year-old male with chronic anal pain and internal hemorrhoids Findings: Posterior anal fissure, with internal hemorrhoids of the left lateral and right posterior columns Procedure Description: The patient was brought to the OR, moved onto the operating room table bed. Anesthesia was induced, and he was placed in lithotomy positioning. Great care was taken to pad and support him appropriately. Next, the perineum was prepped and draped in the usual fashion. External exam demonstrated some small perianal skin tags, and on the posterior portion, around 7:00 on a clock face there was a 0.5 cm anal fissure surrounding tissue was otherwise healthy appearing. There is a little bit of granulation tissue at the base of the fissure. Digital rectal exam felt normal. Next, I established a generous field block around the anus using local anesthetic with Exparel. Tissue surrounding the fissure was also anesthetized. I then performed anoscopy. There were internal hemorrhoids of the left lateral and right posterior columns. These were suction band ligated in the usual fashion without any difficulty. The remainder of the anal column, distal rectum appeared normal and healthy. I turned my attention back to the fissure. Using combination of sharp and mechanical debridement I excised the lateral aspect of the fissure tissue back to healthy bleeding tissue. Was irrigated clean, and appeared hemostatic. Drapes were then removed, the patient was placed back in the supine position as the anesthetic was turned off.
[2023-10-09] VITALS (7 sets, daily range): BP systolic 87–122; BP diastolic 42–74; PULSE 47–61; RESP 16; TEMP 36.1–36.7; O2SAT 94–97; BMI 29.8
[2023-10-09] MEDS: Gabapentin 300 MG CAP 600 MG PO (10:03)
[2023-10-09] MEDS: Celecoxib 200 MG CAP PO (10:03)
[2023-10-09] MEDS: Lactated Ringers 1,000 ML 80 ML IV (10:03)
[2023-10-09] MEDS: Acetaminophen 500 MG TAB 1000 MG PO (10:03)
--- NOTE | 2023-10-09 10:05 | W.ANESPRE ---
General Info Date of Service Date Performed: 10/09/23 Height: 5 ft 10 in Weight: 94.347 kg Body Mass Index (BMI): 29.8 Surgical Procedure: Operation Date: 10/09/23 11:10 Proposed Procedure Side Surgeon p Anorectal Exam Under Anesthesia Gary Lees MD s Hemorrhoidectomy Gary Lees MD Meds Allergies and Home Medications Allergies Allergy/AdvReac Type Severity Reaction Status Date / Time atorvastatin Allergy Intermediate chest pain Verified 10/09/23 09:38 alfuzosin AdvReac Intermediate Skin Rash Verified 10/09/23 09:38 bupropion AdvReac Intermediate PASSED Verified 10/09/23 09:38 OUT tamsulosin AdvReac throat Verified 10/09/23 09:38 burning, chest pressure, stomach discomfort Home Medication ?Medication ?Instructions ?Recorded silodosin 4 mg capsule (Rapaflo) 8 mg PO DAILY 11/23/21 hydrocortisone 2.5 % topical cream 1 applic topical TID PRN skin 09/25/23 irritation/hemorrhoid #30 grams Current Visit Medications: Current Medications Generic Name Dose Route Start Last Admin Trade Name Freq PRN Reason Stop Dose Admin Acetaminophen 1,000 mg 10/09/23 06:00 10/09/23 10:03 Acetaminophen 500 Mg Tab PO 10/09/23 23:59 1,000 mg PREOP GAIL Administration Celecoxib 200 mg 10/09/23 06:00 10/09/23 10:03 Celecoxib 200 Mg Cap PO 10/09/23 23:59 200 mg PREOP GAIL Administration Gabapentin 600 mg 10/09/23 06:00 10/09/23 10:03 Gabapentin 300 Mg Cap PO 10/09/23 23:59 600 mg PREOP GAIL Administration Hydromorphone HCl 0.2 mg 10/08/23 19:43 Hydromorphone 2 Mg/Ml Syr IVP 11/07/23 19:42 Q1H PRN PRN Ringer's Solution 1,000 mls @ 80 mls/hr 10/09/23 06:00 10/09/23 10:03 IV 10/09/23 23:59 80 mls/hr INFUSION GAIL Administration IV Miscellaneous Supplies 1 each 10/09/23 06:00 Iv Access IV 10/09/23 23:59 DIRECTED GAIL Oxycodone HCl 5 mg 10/08/23 19:43 Oxycodone 5 Mg Tab PO 11/07/23 19:42 Q3H PRN PRN Pain Sodium Biphosphate/Sodium Phosphate 133 ml 10/09/23 06:00 Na Phosphate Enema-Adult 133 Ml Btl MI 10/09/23 23:59 PREOP GAIL Sodium Chloride 0 ml 10/09/23 06:00 Normal Saline Flush 10 Ml Syr IV 10/09/23 23:59 PRN PRN Sodium Chloride 0 ml 10/09/23 06:00 Normal Saline 10 Ml Vial IJ 10/09/23 23:59 DIRECTED PRN Sterile Water 0 ml 10/09/23 06:00 Water,Injection,Sterile 10 Ml Vial IJ 10/09/23 23:59 DIRECTED PRN PFSH Active Problems Active Problems: Problem Status Onset Code Snoring Acute R06.83 Foreign body sensation, throat Acute R09.A2 Internal hemorrhoids Acute K64.8 Nocturia Acute R35.1 Actinic keratoses Acute L57.0 IFG (impaired fasting glucose) Acute ~01/2023 R73.01 Post-COVID chronic cough Acute R05.3, U09.9 Erectile dysfunction Chronic N52.9 Incomplete bladder emptying Acute R33.9 Benign prostatic hyperplasia with lower urinary tract symptoms Chronic N40.1 Hyperlipidemia Chronic 02/16/11 E78.5 BPH loc w urin obs/LUTS Chronic ~11/2021 N40.1 Medical History Medical History Screening for colon cancer (~05/2022) History of wrist fracture Left upper quadrant abdominal pain Decreased libido (~02/27/20) Feeling of incomplete bladder emptying (02/27/20) Benign prostate hyperplasia URI (upper respiratory infection) Right flank pain Abnormal auditory perception (12/28/13) History of rheumatic fever (02/16/11) Pt. states when he was [age] years. Pt. states he has had no issues with his heart, he said years and years ago he was told he had a heart murmur but nothing has ever been said in years per pt. 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 Payne [facility] endoscopy RH Paraesophageal hernia (06/14/17) Raman Srinivasan MD [facility] Overweight (BMI 25.0-29.9) (11/15/14) usual 205-215 Meralgia paresthetica of right side (05/01/16) Lower urinary tract symptoms (LUTS) (05/01/16) Increased urinary frequency (11/25/15) Surgical History Surgical History S/P skin biopsy (~03/2023) Dr Jamie Garcia inferior postauricular scalp, shave Bx solar lentigo,irritated S/P colonoscopy (~05/2022) Status post laparoscopic hernia repair (~11/2021) Vasectomy vasectomy , reversal 01/1993 UGI w/ bx to break ring (no histology) (04/11/17) UGI w/ Bx (02/28/17) Paraesophageal Hernia repair (07/29/17) Done at [facility] Laparoscopically w/Intraoperative Upper Endo Tobacco Smoking/Tobacco Use Status: Former Tobacco Use Smokeless tobacco user: snuff Passive smoking exposure: No Second hand exposure: No Alcohol Alcohol Intake: current Alcohol intake frequency: 0-2 drinks per day Alcohol type: beer and hard liquor Substance Use Substance use: Never Substance use type: does not use Vital Signs and Lab Results Vital Signs Most Recent Vital Signs in EMR: Most Recent Vital Signs Temp Pulse Resp BP Pulse Ox 36.7 C 61 16 122/74 97 10/09/23 09:58 10/09/23 09:58 10/09/23 09:58 10/09/23 09:58 10/09/23 09:58 Lab Results Blood Type / Crossmatch: No Data to Display Complete Blood Count: No Data to Display Complete Metabolic Panel: No Data to Display Liver Function Panel: No Data to Display Coagulation Panel: No Data to Display Cardiac Panel: No Data to Display Arterial Blood Gas: No Data to Display Venous Blood Gas: No Data to Display Pancreas Panel: No Data to Display Thyroid Panel: No Data to Display Infectious Disease: No Data to Display Blood Cultures: No Data to Display Toxicology Panel: No Data to Display Anesthesia Assessment and Plan Anesthesia History Personal History: No History of Anesthesia Complications Family History: No Family History of Anesthesia Complications Exercise Tolerance Exercise Tolerance: Metabolic Equivalents>4 Pertinent Negatives Pertinent Negatives: No Major Cardiovascular Symptoms or Complaints and No Major Pulmonary Symptoms or Complaints Cardiac & Pulmonary Exam Cardiac Exam: Normal S1/S2 Heart Sounds Pulmonary Exam: Clear Bilateral Breath Sounds Implantable Cardiac Device Does patient have a Pacemaker or an ICD?: No Airway Exam Known Difficult Airway: No Mallampati Class: 1 Mouth Opening: Normal (> 3cm) Thyromental Distance: Greater than 3 cm Facial Hair: Full [place] Neck Range of Motion: Full ROM Neck Circumference: Normal Teeth Condition: Normal Dentition ASA Classification ASA Score: ASA 2 Emergency Case?: No NPO Status NPO Status: NPO Clears >2 hours, Solids >8 hours Anesthesia Plan Resuscitation Status: Full Code Anesthesia Technique: General Anesthesia Airway Planned: Natural Airway Monitors Used: Standard Monitors Preoperative Comments:: Probable sleep apnea, chronic throat clearing.
[2023-10-09] MEDS: Na Phosphate Enema-Adult 133 ML BTL PR (10:07)
[2023-10-09] MEDS: Normal Saline 20 ML VIAL (12:10)
[2023-10-09] MEDS: Bupivacaine LIPOSOME/PF 133 MG/10 ML VIAL IJ (12:10)
--- NOTE | 2023-10-09 13:27 | W.ANESPOSTOP ---
Postoperative Evaluation Date, Time and Location Date Performed: 10/09/23 Time Performed: 13:27 Patient Location: Day Surgery Unit Vital Signs Most Recent Imported Vital Signs: Most Recent Vital Signs Temp Pulse Resp BP Pulse Ox 36.1 C L 50 L 16 99/61 L 97 10/09/23 13:05 10/09/23 13:05 10/09/23 13:05 10/09/23 13:05 10/09/23 13:05 Pain Score Most Recent Pain Score: Most Recent Pain Score Pain Level 4 10/09/23 12:40 Assessment Mental Status: Awake (Alert & Oriented to Patient Baseline) Airway and Respiratory Function: Patent airway with normal (patient baseline) respiratory exam Cardiovascular Function: Hemodynamically Stable Hydration Status: Adequately Hydrated Nausea & Vomiting: No Nausea or Vomiting Pain: Pain is tolerable per patient Peripheral Nerve Block: Patient did not receive a nerve block
== END 2023-10-09 14:18 | disposition home or self-care (01) ==
LOC: SUR 09:26
PROVIDERS: PCP Nurse Practitioner Adult Health; Visit Provider Surgery
PROC: (CPT 46221; principal; 2023-10-09 11:15)
PROC: (CPT 46221; 2023-10-09 11:15)
DX: K64.8 Other hemorrhoids (principal); K60.2 Anal fissure, unspecified
CPT/HCPCS: 46221; C9290; J2001; J2004; J2405; J2704

== ENCOUNTER 2023-10-18 01:40 | Outpatient (CLI) | payer MEDICARE, OTHER, SELFPAY ==
--- NOTE | 2023-10-24 17:56 | W.NOCTURNAL ---
Date of service: 10/18/23 Time of Service: 21:46 Nocturnal Oximetry Note: Report: Overnight Oximetry on Room Air without BiPAP. Patient: STACIE Forbes 1955 Indication: Witnessed apneas during sleep Ordering provider: Zita Diaz Date of study: October 18, 2019 Conditions of test: Test done by [facility] with home oximetry.? Desaturation events were defined as drop in SpO2 by 4% for a minimum duration of 10 seconds. Results: Minimum oxygen saturation was 79% at 02 55 hrs. Time spent with SpO2 less than 88% was 16.6 minutes. The maximum single time with saturation less than 88% was 348 seconds at 03 42 hrs. Average pulse was 61.7 bpm, high pulse was 100 bpm. The technical quality of this test was adequate for clinical decision making. Impression: 1.? There was severe, prolonged oxygen desaturation late in the study. 2.? This test does meet Medicare criteria for supplemental oxygen. Recommendations: 1. Additional evaluation with polysomnography and CPAP titration are recommended to diagnose and determine optimal treatment for sleep apnea 2. While awaiting polysomnography, consider temporarily using supplemental oxygen at 2 to 3 L/min to relieve nocturnal oxygen desaturation pending his polysomnography results. CPAP is superior for sleep apnea, if present. Fabio Chester MD [facility] Pul[facility]
== END 2023-10-18 01:41 | disposition home or self-care (01) ==
LOC: RT 01:40
PROVIDERS: PCP Nurse Practitioner Adult Health; Visit Provider Student in an Organized Health Care Education/Training Program
DX: G47.34 Idiopathic sleep related nonobstructive alveolar hypoventilation (principal)
CPT/HCPCS: 00123; 94762

== ENCOUNTER → 2023-10-29 09:25 | Outpatient (BNVA) | payer MEDICARE, OTHER, SELFPAY | PROVIDERS: PCP Nurse Practitioner Adult Health; Referring Provider Nurse Practitioner Adult Health; Visit Provider Surgery | DX: Z48.815 Encounter for surgical aftercare following surgery on the digestive system (principal) ==

== ENCOUNTER 2023-11-18 02:21 | Outpatient (CLI) | payer MEDICARE, SELFPAY ==
[2023-11-18 08:33] LABS: Calculated LDL 136 mg/dL (<100); Cholesterol 211 mg/dL (<200); HDL Cholesterol 61 mg/dL (40-60); Triglyceride 71 mg/dL (<150)
== END 2023-11-18 02:22 | disposition home or self-care (01) ==
LOC: LBO 02:21
PROVIDERS: PCP Nurse Practitioner Adult Health; Referring Provider Nurse Practitioner Adult Health; Visit Provider Nurse Practitioner Adult Health
DX: E78.2 Mixed hyperlipidemia (principal)
CPT/HCPCS: 36415; 80061

== ENCOUNTER → 2024-02-17 12:38 | Outpatient (BNVA) | payer MEDICARE, SELFPAY | PROVIDERS: PCP Nurse Practitioner Adult Health; Referring Provider Nurse Practitioner Adult Health; Visit Provider Nurse Practitioner Gerontology | DX: N40.1 Benign prostatic hyperplasia with lower urinary tract symptoms (principal); R35.1 Nocturia; R39.12 Poor urinary stream | CPT/HCPCS: 51798; 81003; 99215 ==

== ENCOUNTER 2024-02-17 14:43 | Outpatient (CLI) | payer MEDICARE, SELFPAY ==
[2024-02-17 22:48] LABS: PSA, Diagnostic 1.4 ng/mL (<=4.5)
== END 2024-02-17 14:44 | disposition home or self-care (01) ==
LOC: LBO 14:50
PROVIDERS: PCP Nurse Practitioner Adult Health; Visit Provider Nurse Practitioner Gerontology
DX: N40.1 Benign prostatic hyperplasia with lower urinary tract symptoms (principal)
CPT/HCPCS: 36415; 51798; 81003; 99215; 84153

== ENCOUNTER 2024-11-16 03:24 | Outpatient (CLI) | payer MEDICARE, SELFPAY ==
[2024-11-16 08:04] LABS: Hemoglobin A1C 5.4 % (<5.7)
[2024-11-16 09:13] LABS: Folate 18.1 ng/mL (8.6-20.0)
[2024-11-16 09:31] LABS: ALT 18 U/L (16-63); AST 12 U/L (15-37); Albumin 3.5 g/dL (3.4-5.0); Alkaline Phosphatase 79 U/L (46-116); Anion Gap 8.5 mmol/L (3-11); BUN 18 mg/dL (7-18); Bilirubin, Total 0.5 mg/dL (0.2-1.0); CO2 28.5 mmol/L (21.0-32.0); Calcium 8.5 mg/dL (8.5-10.1); Calculated LDL 126 mg/dL (<100); Chloride 104 mmol/L (98-107); Cholesterol 197 mg/dL (<200); Estimated GFR 81.98 (mL/min/1.73m2); Glucose 97 mg/dL (74-106); HDL Cholesterol 56 mg/dL (>or=40); Potassium 4.2 mmol/L (3.5-5.1); Sodium 141 mmol/L (136-145); Total Protein 6.8 g/dL (6.4-8.2); Triglyceride 78 mg/dL (<150); Vitamin B12 501 pg/mL (193-986)
== END 2024-11-16 03:25 | disposition home or self-care (01) ==
LOC: LBO 03:24
PROVIDERS: PCP Nurse Practitioner Adult Health; Referring Provider Nurse Practitioner Adult Health; Visit Provider Nurse Practitioner Adult Health
DX: G47.34 Idiopathic sleep related nonobstructive alveolar hypoventilation (principal); R73.01 Impaired fasting glucose; E78.5 Hyperlipidemia, unspecified
CPT/HCPCS: 36415; 80053; 80061; 82607; 82746; 83036